=== PATIENT | female | born 1940 | race Caucasian/White ===

== ENCOUNTER → 2017-12-23 | Outpatient (CLI) | payer MEDICARE ==
--- NOTE | 2017-12-23 16:12 | BD ---
EXAMINATION TYPE: Axial Bone Density DATE OF EXAM: 12/23/2017 COMPARISON: NONE CLINICAL HISTORY: Osteoporosis screening Height: 5' Weight: 142 FRAX RISK QUESTIONS: History of Fracture in Adulthood: y Secondary Osteoporosis: 3. Menopause before 45: y RISK FACTORS HISTORY OF: Surgery to Spine: fusion When: 2002 Postmenopausal woman: MEDICATIONS: Thyroid Medications: Which medication: Synthroid How Lon years Additional Medications: depression, Additional History: cancer, skin EXAM MEASUREMENTS: Bone mineral densitometry was performed using the [employer] System. Bone mineral density about the R hip (g/cm2): 0.714 Bone mineral density about the L hip (g/cm2): 0.753 T Score values are as follows: -----R Neck: -2.3 -----L Neck: -2.0 -----R Total: -1.9 -----L Total: -1.9 Bone mineral density about the L Wrist (g/cm2): 0.524 T Score values are as follows: -----Dist. R+U: -2.6 -----Prox. R+U: -1.8 -----Radius total: -2.5 IMPRESSION: Osteoporosis (T Score less than -2.5). There is increased fracture risk and therapy is usually indicated based on age. Re-Screen 1-2 years. NOTE: T-SCORE=SD OF THE YOUNG ADULT MEAN.
== END | disposition home or self-care (01) ==
LOC: RADBDWWP 12:55
PROVIDERS: ATTEND Family Medicine
DX: M81.0 Age-related osteoporosis without current pathological fracture (principal)
CPT/HCPCS: 77080

== ENCOUNTER → 2018-12-21 | Outpatient (CLI) | payer MEDICARE ==
--- NOTE | 2018-12-21 15:57 | CT ---
EXAMINATION TYPE: CT abdomen pelvis w con DATE OF EXAM: 12/21/2018 COMPARISON: None INDICATION: Ulcerative colitis DLP: 668.4 mGycm, Automated exposure control for dose reduction was used. CONTRAST: 100 mL of Isovue 300. Study performed with Oral Contrast TECHNIQUE: Axial images were obtained from above the diaphragm to the pubic rami in the axial plane a t 5 mm thick sections. Reconstructed images are reviewed on the computer in the coronal plane. FINDINGS: Limited CT sections are obtained the lung bases. The lung bases are clear. CT ABDOMEN: Liver: Normal Spleen: Normal Pancreas: Normal Adrenal glands: The adrenal glands are normal. Gallbladder: Surgically absent Kidneys: No masses are evident. No hydronephrosis is present. Pole cortical renal cysts are present bilaterally. Delayed images were obtained through the kidneys, which remain unremarkable. Aorta: Vascular calcification is within the aorta. Inferior vena cava: Normal. CT PELVIS: Loops of bowel within the abdomen and pelvis are normal. There are loops of bowel which are incom pletely distended or lack oral contrast limiting their evaluation. Appendix: Not identified. No suspicious inflammatory changes are evident. Urinary bladder: Normal. Genitourinary structures: Vaginal cuff region appears normal. Uterus and ovaries are not identified. Osseous structures: No suspicious lytic or sclerotic lesions. Surgical changes are within the lumbar spine. IMPRESSIONS: 1. Cortical renal cysts present bilaterally. 2. Bowel loops as visualized on this examination appear within normal limits. No suspicious wall thic kening or inflammatory changes are evident.
== END | disposition home or self-care (01) ==
LOC: RADCTMAIN 12:40
PROVIDERS: ATTEND Family Medicine
DX: N28.1 Cyst of kidney, acquired (principal); Z87.19 Personal history of other diseases of the digestive system
CPT/HCPCS: 82565; 84520; 74177; 36415; Q9967 ×2

== ENCOUNTER → 2020-09-25 | Outpatient (CLI) | payer MEDICARE | END | disposition home or self-care (01) | LOC: LABWHC1 08:34 | PROVIDERS: ATTEND Family Medicine | DX: R06.02 Shortness of breath (principal) | CPT/HCPCS: 36415; 93005 ==

== ENCOUNTER 2020-09-27 20:29 | Observation (INO) | payer MEDICARE ==
[2020-09-27] MEDS ORDERED: ASPIRIN 81 MG PO STA (21:06)
--- NOTE | 2020-09-27 21:10 | ED ---
Chest Pain HPI - General Chief Complaint: Chest Pain Stated Complaint: Chest Pain,SOB Time Seen by Provider: 09/27/20 20:47 Source: patient, RN notes reviewed Mode of arrival: wheelchair Limitations: no limitations - History of Present Illness Initial Comments: 80-year-old female presents emergency Department chief complaint of chest discomfort. Patient's been having some on-and-off symptoms with the week. Patient saw PCP ordered EKG. Patient states that she was instructed to go to emergency from symptoms worsen. Patient states that seemed to worsen tonight. She has had some exertional symptoms. Patient denies any prior cardiac disease. No history of blood clots. Patient states she has pain left side and felt some back pain but states it felt different. Patient states the back pain has resolved. Patient did take a baby aspirin prior arrival. Denies any abdominal complaints including nausea vomiting diaphoresis. - Related Data Home Medications Medication Instructions Recorded Confirmed Baclofen 10 mg PO HS PRN 01/01/15 01/17/15 Fexofenadine HCl [Anais Allergy] 180 mg PO HS 01/01/15 01/17/15 Levothyroxine Sodium [Synthroid] 50 mcg PO QAM 01/01/15 01/17/15 Mometasone Furoate [Nasonex] 2 spray INHALATION DAILY 01/01/15 01/17/15 Temazepam [Restoril] 15 mg PO HS PRN 01/01/15 01/17/15 sulfaSALAzine [Sulfasalazine] 500 mg PO DAILY PRN 01/01/15 01/17/15 Acetaminophen Tab [Tylenol Tab] 500 mg PO Q6H PRN 01/17/15 01/17/15 Allergies Allergy/AdvReac Type Severity Reaction Status Date / Time morphine Allergy HYPOTENSION Verified 01/17/15 08:31 Penicillins Allergy Dyspnea Verified 01/17/15 08:31 antibactrial cream Allergy Rash/Hives Uncoded 09/27/20 20:36 Review of Systems ROS Statement: Those systems with pertinent positive or pertinent negative responses have been documented in the HPI. ROS Other: All systems not noted in ROS Statement are negative. EKG Findings - EKG Comments: EKG Findings:: EKG performed at 20:48 sinus rhythm PVCs noted rate of 66 WA 166 QRS 82 QT/QTC 452/475 there is a noted prolonged QT. - EKG Results: EKG: interpreted by ERMD Past Medical History Past Medical History: Cancer, Thyroid Disorder Additional Past Medical History / Comment(s): COLITIS. BASAL CELL. CHRONIC BACK PAIN. History of Any Multi-Drug Resistant Organisms: None Reported Past Surgical History: Adenoidectomy, Back Surgery, Cholecystectomy, Hyster ectomy, Tonsillectomy Additional Past Surgical History / Comment(s): DISCECTOMY/FUSION: L4-5 & L5-S1. REMOVAL OF SCALP LESION. BILATERAL CATARACTS/LENS IMPLANTS. Past Anesthesia/Blood Transfusion Reactions: No Reported Reaction Past Psychological History: No Psychological Hx Reported Smoking Status: Former smoker Past Alcohol Use History: Occasional Past Drug Use History: None Reported - Past Family History Mother Family Medical History: CVA/TIA General Exam Limitations: no limitations General appearance: alert, in no apparent distress Head exam: Present: atraumatic, normocephalic, normal inspection Eye exam: Present: normal appearance, PERRL, EOMI. Absent: scleral icterus, conjunctival injection, periorbital swelling ENT exam: Present: normal exam, normal oropharynx, mucous membranes moist Neck exam: Present: normal inspection, full ROM. Absent: tenderness, meningismus, lymphadenopathy Respiratory exam: Present: normal lung sounds bilaterally. Absent: respiratory distress, wheezes, rales, rhonchi, stridor Cardiovascular Exam: Present: regular rate, normal rhythm, normal heart sounds. Absent: systolic murmur, diastolic murmur, rubs, gallop, clicks GI/Abdominal exam: Present: soft, tenderness (Mild epigastric), normal bowel sounds. Absent: distended, guarding, rebound, rigid Back exam: Absent: CVA tenderness (R), CVA tenderness (L) Neurological exam: Present: alert, oriented X3 Skin exam: Present: warm, dry, intact, normal color. Absent: rash Course Vital Signs 09/27/20 20:33 Temperature 97.3 F L Pulse Rate 69 Respiratory 20 Rate Blood Pressure 165/80 O2 Sat by Pulse 99 Oximetry Chest Pain MDM - MDM 80-year-old presented for chest pain. Patient's been having on and off symptoms worsening initial workup is negative this time including troponin. Patient will be kept for repeat cardiac enzymes, cardiology evaluation and echocardiogram. Disposition Clinical Impression: Chest pain Disposition: ADMITTED IP TO THIS HOSP Condition: Fair Referrals: Raisa uRvalcaba MD [Primary Care Provider] - 1-2 days
--- NOTE | 2020-09-27 21:38 | XR ---
EXAMINATION TYPE: XR chest 2V DATE OF EXAM: 09/27/2020 COMPARISON: NONE HISTORY: Chest pain TECHNIQUE: 2 views FINDINGS: There is no heart failure nor confluent pneumonic infiltrate. There are chest leads. Thorac ic aorta is atheromatous. IMPRESSION: No active cardiopulmonary disease. Normal heart.
[2020-09-27 21:42] LABS: Basophils # (A) 0.1 k/uL (0-0.2); Basophils % (A) 1 %; Eosinophils # (A) 0.3 k/uL (0-0.7); Eosinophils % (A) 4 %; HCT 39.2 % (34.0-46.0); HGB 13.2 gm/dL (11.4-16.0); Lymphocytes # (A) 2.5 k/uL (1.0-4.8); Lymphocytes % (A) 35 %; MCH 31.6 pg (25.0-35.0); MCHC 33.6 g/dL (31.0-37.0); MCV 93.9 fL (80.0-100.0); Mean Platelet Volume 8.7; Monocytes # (A) 0.5 k/uL (0-1.0); Monocytes % (A) 7 %; Neutrophils # (A) 3.6 k/uL (1.3-7.7); Neutrophils % (A) 51 %; Platelet Count 223 k/uL (150-450); RBC 4.18 m/uL (3.80-5.40); RDW 13.6 % (11.5-15.5); WBC 7.1 k/uL (3.8-10.6)
[2020-09-27 21:56] LABS: Albumin 3.9 g/dL (3.5-5.0); Calcium 9.4 mg/dL (8.4-10.2); Magnesium 2.1 mg/dL (1.6-2.3); Potassium 4.1 mmol/L (3.5-5.1); Total Bilirubin 0.4 mg/dL (0.2-1.3); Total Protein 6.5 g/dL (6.3-8.2)
[2020-09-27 22:03] LABS: D-Dimer 0.21 mg/L FEU (<0.60); INR 0.9 (<1.2); Partial Thromboplastin Time 24.4 sec (22.0-30.0); Prothrombin Time 10.1 sec (9.0-12.0)
[2020-09-27] MEDS ORDERED: NITROGLYCERIN SL TABS 0.4 MG TAB SUBLINGUAL PRN (22:45)
[2020-09-27] MEDS ORDERED: HEPARIN SODIUM,PORCINE 5,000 UNIT/ML 1 ML VIAL IV PRN (22:45)
[2020-09-27] MEDS ORDERED: HEPARIN SODIUM,PORCINE 5,000 UNIT/ML 1 ML VIAL IV ONE (22:45)
[2020-09-27] MEDS ORDERED: HEPARIN SOD,PORK IN 0.45% NACL 25,000 UNIT in 0.45% NACL 1 250ML.BAG IV SCH (22:45)
[2020-09-28 04:18] LABS: Mean Platelet Volume 8.7; Platelet Count 195 k/uL (150-450)
[2020-09-28 05:46] LABS: Cholesterol 195 mg/dL (<200); HDL Cholesterol 81 mg/dL (40-60); LDL Cholesterol,Calculated 104 mg/dL (0-99); Triglycerides 52 mg/dL (<150)
[2020-09-28] MEDS ORDERED: ASPIRIN 325 MG TAB PO SCH (09:00)
[2020-09-28] MEDS ORDERED: CLOTRIMAZOLE 1% CREAM 30 GM TUBE TOPICAL PRN (12:32)
[2020-09-28] MEDS ORDERED: HYDROCORTISONE 1% CREAM 30 GM TUBE TOPICAL PRN (12:32)
--- NOTE | 2020-09-28 13:04 | P.HPIM ---
History of Present Illness H&P Date: 09/28/20 Chief Complaint: Chest pain Erica Zuniga, he is a 80-year-old female patient of Dr. Ruvalcaba, who presented to [facility] emergency room with a chief complaint of chest pain patient describes a pressure sensation in the middle of her chest radiating to the back and the it instructor 8 with shortness of breath there is no nausea or vomiting no diaphoresis and no radiation of the pain to the jaw or to the arms. Patient had a first episode of chest pain on Wednesday 5 days ago she saw her primary care physician Dr. Ruvalcaba, she had an EKG that was described as abn ormal, an outpatient appointment was made for patient to see cardiology, and she was told to come to emergency room if she had a second episode of chest pain. Patient had chest pain again on Wednesday night and she came to emergency room. Patient was evaluated in the emergency room her vital examination on presentation reveals a temperature of 97.3 pulse 69 respiration 20 blood pressure 165/80 pulse ox 99% on room air her white blood count was 7.1 hemoglobin 13.2 platelet count 223 d-dimer 0.21 sodium 135 potassium 4.1 chloride 102 BUN 22 creatinine 0.85 troponin level less than 0.012 lipase 251 Forrest virus PCR was negative. EKG in the emergency room revealed normal sinus rhythm with nonspecific ST and T-wave abnormalities and prolonged QT. Chest x- ray on presentation revealed no active cardiopulmonary disease. Patient was admitted to observation unit she was started on IV heparin cardiology consultation was requested. Past medical history is significant for history of hypertension, history of hypothyroidism, history of osteoarthritis, and history of carotid stenosis. Patient stated that she used to smoke she quit 30 years, she denies any previous history of chest pain and angina myocardial infarction or congestive heart failure, she denies ever being diagnosed with asthma or emphysema. Past Medical History Past Medical History: Cancer, Thyroid Disorder Additional Past Medical History / Comment(s): COLITIS. BASAL CELL. CHRONIC BACK PAIN. History of Any Multi-Drug Resistant Organisms: None Reported Past Surgical History: Adenoidectomy, Back Surgery, Cholecystectomy, Hysterectomy, Tonsillectomy Additional Past Surgical History / Comment(s): DISCECTOMY/FUSION: L4-5 & L5-S1. REMOVAL OF SCALP LESION. BILATERAL CATARACTS/LENS IMPLANTS. Past Anesthesia/Blood Transfusion Reactions: No Reported Reaction Past Psychological History: No Psychological Hx Reported Smoking Status: Former smoker Past Alcohol Use History: Occasional Past Drug Use History: None Reported - Past Family History Mother Family Medical History: CVA/TIA Medications and Allergies Home Medications Medication Instructions Recorded Confirmed Type Fexofenadine HCl [Anais Allergy] 180 mg PO HS 01/01/15 09/27/20 History Levothyroxine Sodium [Synthroid] 50 mcg PO DAILY 01/01/15 09/27/20 History Mometasone Furoate [Nasonex] 1 spray EA NOSTRIL HS 01/01/15 09/27/20 History Alendronate Sodium [Fosamax] 70 mg PO MO 09/27/20 09/27/20 History Ascorbic Acid [Vitamin C] 1,000 mg PO DAILY 09/27/20 09/27/20 History Biotin 5,000 mcg PO DAILY 09/27/20 09/27/20 History Calcium/Magnesium/Zinc 1 tab PO DAILY 09/27/20 09/27/20 History [Dfzguvn-Gudyojgbn-Xzmg Tablet] Cholecalciferol [Vitamin D3 (25 50 mcg PO DAILY 09/27/20 09/27/20 History Mcg = 1000 Iu)] Citrucel Caps 3 cap PO HS 09/27/20 09/27/20 History Dorzolamide HCl/Pf [Dorzolamide 2% 1 drop RIGHT EYE BID 09/27/20 09/27/20 History Eye Drop] Glucosam/Dm-Msm1/C/Tamir/Bosw 1 tab PO DAILY 09/27/20 09/27/20 History [Glucosamine-Chondroitin Tablet] Hydrocortisone Cream 1 applic TOPICAL BID PRN 09/27/20 09/27/20 History [Hydrocortisone 2.5% Cream] Isosorbide Mononitrate ER [Imdur] 30 mg PO DAILY 09/27/20 09/27/20 History Ketoconazole [Ketoconazole 2%] 1 applic TOPICAL BID PRN 09/27/20 09/27/20 History Timolol 0.5% Ophth Soln [Timoptic 1 drop BOTH EYES BID 09/27/20 09/27/20 History 0.5% Ophth Soln] Turmeric Curcumin 1500mg 1,500 mg PO DAILY 09/27/20 09/27/20 History Vits A,C,E/Lutein/Minerals [Vision 1 tab PO DAILY 09/27/20 09/27/20 History Formula with Lutein Tab] Allergies Allergy/AdvReac Type Severity Reaction Status Date / Time morphine Allergy HYPOTENSION Verified 09/27/20 22:55 Penicillins Allergy Dyspnea Verified 09/27/20 22:55 antibactrial cream Allergy Rash/Hives Uncoded 09/27/20 20:36 Physical Exam Vitals: Vital Signs Temp Pulse Resp BP Pulse Ox 09/28/20 05:16 98.6 F 60 18 198/89 99 09/27/20 23:15 97.7 F 58 L 16 162/74 95 09/27/20 21:00 61 16 95 09/27/20 20:33 97.3 F L 69 20 165/80 99 Intake and Output 09/27/20 09/27/20 09/28/20 14:59 22:59 06:59 Intake Total 43.319 Balance 43.319 Intake: Intake, IV Titration 43.319 Amount Heparin Sod,Pork in 0.45% 43.319 NaCl 25,000 unit In 0.45 % NaCl 1 250ml.bag @ 12 UNITS/KG/HR 7.512 mls/hr IV .Q24H [facility] Rx#: [id number] Other: Weight 62.596 kg In general patient is alert and oriented in no apparent distress HEENT head normocephalic and atraumatic Neck is supple no JVD no goiter no lymphadenopathy Chest exam reveals a few scattered rhonchi no wheezing Cardiac exam reveals regular heart sounds S1 and S2 no gallops no murmurs Abdomen is soft nontender no organomegaly with normal bowel sounds Extremity exam reveals no edema no cyanosis or clubbing Neurological examination reveals no gross focal deficit Results CBC & Chem 7: 09/28/20 03:24 09/27/20 21:13 Labs: Abnormal Lab Results - Last 24 Hours (Table) 09/27/20 09/28/20 09/28/20 Range/Units 21:13 03:23 03:24 APTT 110.9 H* (22.0-30.0) sec Sodium 135 L (137-145) mmol/L BUN 22 H (7-17) mg/dL LDL Cholesterol, Calc 104 H (0-99) mg/dL HDL Cholesterol 81 H (40-60) mg/dL Assessment and Plan Plan: 1. Chest pain, serial EKG and cardiac enzymes ordered patient is maintained on IV heparin cardiology consultation requested 2. Underlying history of hypertension home medications reviewed and review there 3. Underlying history of hypothyroidism maintained on Synthroid was continued 4. Underlying history of osteoarthritis At this time patient is stable no new episodes of chest pain since admission Continue IV heparin awaiting further troponin levels Awaiting cardiology input will follow closely
[2020-09-28] MEDS: LEVOTHYROXINE 50 MCG TAB PO SCH (13:34)
[2020-09-28] MEDS: ISOSORBIDE MONONITRATE ER 30 MG TAB.ER.24H PO SCH (13:34)
[2020-09-28] MEDS: NON FORMULARY DRUG (Calcium/Magnesium/Zinc [Calcium-Magnesium-Zinc Tablet] 1 EACH Tablet) PO SCH (13:36)
[2020-09-28] MEDS: ASCORBIC ACID 500 MG TAB PO SCH (13:45)
[2020-09-28] MEDS: CHOLECALCIFEROL 25 MCG (1000 IU) TABLET PO SCH (13:45)
[2020-09-28] MEDS: VIT A,C & E-LUTEIN-MINERALS 1 EACH TAB PO SCH (13:46)
[2020-09-28] MEDS ORDERED: ALPRAZolam 0.25 MG TAB PO PRN (15:42)
[2020-09-28] MEDS ORDERED: NITROGLYCERIN SL TABS 0.4 MG TAB SUBLINGUAL PRN (15:42)
[2020-09-28] MEDS ORDERED: ALPRAZolam 0.5 MG TAB PO PRN (15:42)
--- NOTE | 2020-09-28 15:42 | P.CRDCN ---
<Nicci Wang - Last Filed: 09/28/20 15:41> History of Present Illness Consult date: 09/28/20 History of present illness: CHIEF COMPLAINT: Chest pain HISTORY OF PRESENT ILLNESS: This is a 80-year-old female with a past medical history significant for hypothyroidism and former nicotine dependence. Patient does not follow with a engine research engineer. We have been asked to see the patient in consultation for chest pain. Patient examined this morning at the bedside. Patient states that she saw her primary care physician last week after expressing episode of chest pain. She reports that an EKG was completed in the office and she was told it was abnormal and was referred to see a engine research engineer. Patient states that she had an appointment scheduled to see Dr. Rodriguez outpatient this coming week. However she reports having another episode of chest pain so she came to the hospital for further evaluation. The patient states her chest pain began as she was walking to her car from a store. She reports the pain was in the middle of her chest and radiated into her back. She denied any dizziness or lightheadedness. She reports associated shortness of breath. She denied any nausea or vomiting. At the time of examination this morning, the patient denies any chest pain or pressure. DIAGNOSTICS: EKG reveals sinus mechanism with PVCs with no evidence of acute ischemia. Prolonged QT. Chest xray no active cardiopulmonary disease. Laboratory data: WBC 7.1. Hemoglobin 13.2. Platelet count 223. D-dimer 0.21. Sodium 135. Potassium 4.1. BUN 22. Creatinine 0.85. Magnesium 2.1. Troponin negative 3. Current home cardiac medications include Imdur 30 mg daily REVIEW OF SYSTEMS: At the time of my exam: CONSTITUTIONAL: Denies fever or chills. HEENT: Denies blurred vision, vision changes, or eye pain. Denies hemoptysis CARDIOVASCULAR: Denies chest pain, orthopnea, PND or palpitations RESPIRATORY: No shortness of breath. GASTROINTESTINAL: Denies abdominal pain. Denies nausea or vomiting. HEMATOLOGIC: Denies bleeding disorders. GENITOURINARY: Denies any blood in urine. SKIN: Denies pruitis. Denies rash. PHYSICAL EXAM: VITAL SIGNS: Reviewed. GENERAL: Well-developed in no acute distress. HEENT: Head is normocephalic. Pupils are equal, round. Sclerae anicteric. Mucous membranes of the mouth are moist. Neck supple. No JVD or thyromegaly LUNGS: Respirations even and unlabored. Lungs essentially clear to auscultation bilaterally. HEART: Regular rate and rhythm. S1 and S2 heard. ABDOMEN: Soft. Nondistended. Nontender. EXTREMITIES: Normal range of motion. No clubbing or cyanosis. Peripheral pulses intact. No lower extremity edema NEUROLOGIC: Awake and alert. Oriented x 3. ASSESSMENT: Chest pain, troponins negative 3 Hypertension Hypothyroidism Former nicotine dependence PLAN: An acute coronary event has been ruled out Discontinue IV heparin Obtain 2-D echo to assess cardiac structure and function Monitor blood pressure Begin lisinopril 10 mg daily for optimal blood pressure control Patient to undergo cardiac catheterization with Dr. Rodriguez on Wednesday Nurse practitioner note has been reviewed by physician. Signing provider agrees with the documented findings, assessment, and plan of care. Past Medical History Past Medical History: Cancer, Thyroid Disorder Additional Past Medical History / Comment(s): COLITIS. BASAL CELL. CHRONIC BACK PAIN. History of Any Multi-Drug Resistant Organisms: None Reported Past Surgical History: Adenoidectomy, Back Surgery, Cholecystectomy, Hysterectomy, Tonsillectomy Additional Past Surgical History / Comment(s): DISCECTOMY/FUSION: L4-5 & L5-S1. REMOVAL OF SCALP LESION. BILATERAL CATARACTS/LENS IMPLANTS. Past Anesthesia/Blood Transfusion Reactions: No Reported Reaction Past Psychological History: No Psychological Hx Reported Smoking Status: Former smoker Past Alcohol Use History: Occasional Past Drug Use History: None Reported - Past Family History Mother Family Medical History: CVA/TIA Medications and Allergies Home Medications Medication Instructions Recorded Confirmed Type Fexofenadine HCl [Anais Allergy] 180 mg PO HS 01/01/15 09/27/20 History Levothyroxine Sodium [Synthroid] 50 mcg PO DAILY 01/01/15 09/27/20 History Mometasone Furoate [Nasonex] 1 spray EA NOSTRIL HS 01/01/15 09/27/20 History Alendronate Sodium [Fosamax] 70 mg PO MO 09/27/20 09/27/20 History Ascorbic Acid [Vitamin C] 1,000 mg PO DAILY 09/27/20 09/27/20 History Biotin 5,000 mcg PO DAILY 09/27/20 09/27/20 History Calcium/Magnesium/Zinc 1 tab PO DAILY 09/27/20 09/27/20 History [[place]-Aejdykuxi-Mdth Tablet] Cholecalciferol [Vitamin D3 (25 50 mcg PO DAILY 09/27/20 09/27/20 History Mcg = 1000 Iu)] Citrucel Caps 3 cap PO HS 09/27/20 09/27/20 History Dorzolamide HCl/Pf [Dorzolamide 2% 1 drop RIGHT EYE BID 09/27/20 09/27/20 History Eye Drop] Glucosam/Dm-Msm1/C/Tamir/Bosw 1 tab PO DAILY 09/27/20 09/27/20 History [Glucosamine-Chondroitin Tablet] Hydrocortisone Cream 1 applic TOPICAL BID PRN 09/27/20 09/27/20 History [Hydrocortisone 2.5% Cream] Isosorbide Mononitrate ER [Imdur] 30 mg PO DAILY 09/27/20 09/27/20 History Ketoconazole [Ketoconazole 2%] 1 applic TOPICAL BID PRN 09/27/20 09/27/20 History Timolol 0.5% Ophth Soln [Timoptic 1 drop BOTH EYES BID 09/27/20 09/27/20 History 0.5% Ophth Soln] Turmeric Curcumin 1500mg 1,500 mg PO DAILY 09/27/20 09/27/20 History Vits A,C,E/Lutein/Minerals [Vision 1 tab PO DAILY 09/27/20 09/27/20 History Formula with Lutein Tab] Allergies Allergy/AdvReac Type Severity Reaction Status Date / Time morphine Allergy HYPOTENSION Verified 09/27/20 22:55 Penicillins Allergy Dyspnea Verified 09/27/20 22:55 antibactrial cream Allergy Rash/Hives Uncoded 09/27/20 20:36 Physical Exam Vitals: Vital Signs Temp Pulse Pulse Resp BP BP Pulse Ox 09/28/20 07:49 97.8 F 61 16 170/69 98 09/28/20 05:16 98.6 F 60 18 198/89 99 09/27/20 23:15 97.7 F 58 L 16 162/74 95 09/27/20 21:00 61 16 95 09/27/20 20:33 97.3 F L 69 20 165/80 99 Intake and Output 09/27/20 09/28/20 09/28/20 22:59 06:59 14:59 Intake Total 43.319 Balance 43.319 Intake: Intake, IV Titration 43.319 Amount Heparin Sod,Pork in 0.45% 43.319 NaCl 25,000 unit In 0.45 % NaCl 1 250ml.bag @ 12 UNITS/KG/HR 7.512 mls/hr IV .Q24H [facility] Rx#: [id number] Other: Weight 62.596 kg Results 09/28/20 03:24 09/27/20 21:13 Cardiac Enzymes 09/27/20 09/27/20 09/28/20 Range/Units 21:13 21:13 00:30 AST 23 (14-36) U/L Troponin I <0.012 <0.012 (0.000-0.034) ng/mL 09/28/20 Range/Units 03:23 AST (14-36) U/L Troponin I <0.012 (0.000-0.034) ng/mL Coagulation 09/27/20 09/28/20 09/28/20 Range/Units 21:13 03:24 10:30 PT 10.1 (9.0-12.0) sec APTT 24.4 110.9 H* 43.9 H (22.0-30.0) sec Lipids 09/28/20 Range/Units 03:23 Triglycerides 52 (<150) mg/dL Cholesterol 195 (<200) mg/dL HDL Cholesterol 81 H (40-60) mg/dL CBC 09/27/20 09/28/20 Range/Units 21:13 03:24 WBC 7.1 (3.8-10.6) k/uL RBC 4.18 (3.80-5.40) m/uL Hgb 13.2 (11.4-16.0) gm/dL Hct 39.2 (34.0-46.0) % Plt Count 223 195 (150-450) k/uL Comprehensive Metabolic Panel 09/27/20 Range/Units 21:13 Sodium 135 L (137-145) mmol/L Potassium 4.1 (3.5-5.1) mmol/L Chloride 102 (98-107) mmol/L Carbon Dioxide 25 (22-30) mmol/L BUN 22 H (7-17) mg/dL Creatinine 0.85 (0.52-1.04) mg/dL Glucose 88 (74-99) mg/dL Calcium 9.4 (8.4-10.2) mg/dL AST 23 (14-36) U/L ALT 13 (4-34) U/L Alkaline Phosphatase 47 (38-126) U/L Total Protein 6.5 (6.3-8.2) g/dL Albumin 3.9 (3.5-5.0) g/dL Current Medications Generic Name Dose Route Start Last Admin Trade Name Freq PRN Reason Stop Dose Admin Ascorbic Acid 1,000 mg 09/28/20 14:00 09/28/20 13:45 Ascorbic Acid 500 Mg Tab PO 1,000 mg DAILY JAKE Administration Aspirin 325 mg 09/28/20 09:00 09/28/20 10:07 Aspirin 325 Mg Tab PO 325 mg DAILY JAKE Administration Cholecalciferol 50 mcg 09/28/20 14:00 09/28/20 13:45 Cholecalciferol 25 Mcg (1000 Iu) Tablet PO 50 mcg DAILY JAKE Administration Clotrimazole 1 applic 09/28/20 12:32 Clotrimazole 1% Cream 15 Gm Tube TOPICAL BID PRN Rash Dorzolamide HCl 1 drops 09/28/20 21:00 Dorzolamide Hcl 2% Drops 10 Ml Btl RIGHT EYE BID JAKE Fluticasone Propionate 1 spray 09/28/20 21:00 Fluticasone 50mcg/[place] Nasal 16gm EA NOSTRIL HS JAKE Heparin Sodium (Porcine) 0 unit 09/27/20 22:45 Heparin Sodium,Porcine 5,000 Unit/Ml 1 Ml Vial IV Q6HR PRN Low PTT Protocol Hydrocortisone 1 applic 09/28/20 12:32 Hydrocortisone 1% Cream 30 Gm Tube TOPICAL BID PRN Rash Isosorbide Mononitrate 30 mg 09/28/20 14:00 09/28/20 13:34 Isosorbide Mononitrate Er 30 Mg Tab.Er.24h PO 30 mg DAILY JAKE Administration Levothyroxine Sodium 50 mcg 09/28/20 14:00 09/28/20 13:34 Levothyroxine 50 Mcg Tab PO 50 mcg 0630 JAKE Administration Loratadine 10 mg 09/28/20 21:00 Loratadine 10 Mg Tab PO HS JAKE Multivitamins/Minerals 1 each 09/28/20 14:00 09/28/20 13:46 Vit A,C & A-Xfzrvr-Osavqlee 1 Each Tab PO 1 each DAILY JAKE Administration Nitroglycerin 0.4 mg 09/27/20 22:45 Nitroglycerin Sl Tabs 0.4 Mg Tab SUBLINGUAL Q5M PRN Chest Pain Non-Formulary Medication 70 mg 09/30/20 09:00 Alendronate Sodium [Fosamax] PO MO JAKE Non-Formulary Medication 5,000 mcg 09/29/20 09:00 Biotin [Biotin] PO DAILY JAKE Non-Formulary Medication 1 tab 09/28/20 12:45 09/28/20 13:36 Calcium/Magnesium/Zinc [Unfuwvy-Nsleggebh-Degl Tablet] PO Not Given DAILY JAKE Non-Formulary Medication 1 tab 09/29/20 09:00 Glucosam/Dm-Msm1/C/Tamir/Bosw [Glucosamine-Chondroitin Tablet] PO DAILY JAKE Non-Formulary Medication 1,500 mg 09/29/20 09:00 Turmeric Curcumin 1500mg PO DAILY JAKE Timolol Maleate 1 drops 09/28/20 21:00 Timolol 0.5% Ophth Drops 5 Ml Btl BOTH EYES BID JAKE Intake and Output 09/27/20 09/28/20 09/28/20 22:59 06:59 14:59 Intake Total 43.319 Balance 43.319 Intake: Intake, IV Titration 43.319 Amount Heparin Sod,Pork in 0.45% 43.319 NaCl 25,000 unit In 0.45 % NaCl 1 250ml.bag @ 12 UNITS/KG/HR 7.512 mls/hr IV .Q24H [facility] Rx#: [id number] Other: Weight 62.596 kg 09/28/20 03:24 09/27/20 21:13 <Mickey Rodriguez - Last Filed: 09/28/20 20:46> Physical Exam Vitals: Vital Signs Temp Pulse Pulse Resp BP BP Pulse Ox 09/28/20 15:00 97.5 F L 61 19 107/65 96 09/28/20 07:49 97.8 F 61 16 170/69 98 09/28/20 05:16 98.6 F 60 18 198/89 99 09/27/20 23:15 97.7 F 58 L 16 162/74 95 09/27/20 21:00 61 16 95 Intake and Output 09/28/20 09/28/20 09/28/20 06:59 14:59 22:59 Intake Total 43.319 240 Balance 43.319 240 Intake: Intake, IV Titration 43.319 Amount Heparin Sod,Pork in 0.45% 43.319 NaCl 25,000 unit In 0.45 % NaCl 1 250ml.bag @ 12 UNITS/KG/HR 7.512 mls/hr IV .Q24H [facility] Rx#: [id number] Oral 240 Other: # Voids 3 Weight 62.596 kg Results 09/28/20 03:24 09/27/20 21:13 Cardiac Enzymes 09/27/20 09/27/20 09/28/20 Range/Units 21: 21: 00:30 AST 23 (14-36) U/L Troponin I <0.012 <0.012 (0.000-0.034) ng/mL 09/28/20 Range/Units 03:23 AST (14-36) U/L Troponin I <0.012 (0.000-0.034) ng/mL Coagulation 09/27/20 09/28/20 09/28/20 Range/Units 21: 03:24 10:30 PT 10.1 (9.0-12.0) sec APTT 24.4 110.9 H* 43.9 H (22.0-30.0) sec Lipids 09/28/20 Range/Units 03:23 Triglycerides 52 (<150) mg/dL Cholesterol 195 (<200) mg/dL HDL Cholesterol 81 H (40-60) mg/dL CBC 09/27/20 09/28/20 Range/Units 21:13 03:24 WBC 7.1 (3.8-10.6) k/uL RBC 4.18 (3.80-5.40) m/uL Hgb 13.2 (11.4-16.0) gm/dL Hct 39.2 (34.0-46.0) % Plt Count 223 195 (150-450) k/uL Comprehensive Metabolic Panel 09/27/20 Range/Units 21:13 Sodium 135 L (137-145) mmol/L Potassium 4.1 (3.5-5.1) mmol/L Chloride 102 (98-107) mmol/L Carbon Dioxide 25 (22-30) mmol/L BUN 22 H (7-17) mg/dL Creatinine 0.85 (0.52-1.04) mg/dL Glucose 88 (74-99) mg/dL Calcium 9.4 (8.4-10.2) mg/dL AST 23 (14-36) U/L ALT 13 (4-34) U/L Alkaline Phosphatase 47 (38-126) U/L Total Protein 6.5 (6.3-8.2) g/dL Albumin 3.9 (3.5-5.0) g/dL Current Medications Generic Name Dose Route Start Last Admin Trade Name Freq PRN Reason Stop Dose Admin Alprazolam 0.25 mg 09/28/20 15:42 Alprazolam 0.25 Mg Tab PO Q6HR PRN Mild Anxiety Alprazolam 0.5 mg 09/28/20 15:42 Alprazolam 0.5 Mg Tab PO Q6HR PRN Moderate Anxiety Ascorbic Acid 1,000 mg 09/28/20 14:00 09/28/20 13:45 Ascorbic Acid 500 Mg Tab PO 1,000 mg DAILY JAKE Administration Aspirin 325 mg 09/30/20 06:00 Aspirin 325 Mg Tab PO 09/30/20 06:01 ONCE ONE Atorvastatin Calcium 80 mg 09/30/20 06:00 Atorvastatin 80 Mg Tab PO 09/30/20 06:01 ONCE ONE Cholecalciferol 50 mcg 09/28/20 14:00 09/28/20 13:45 Cholecalciferol 25 Mcg (1000 Iu) Tablet PO 50 mcg DAILY JAKE Administration Clotrimazole 1 applic 09/28/20 12:32 Clotrimazole 1% Cream 15 Gm Tube TOPICAL BID PRN Rash Dorzolamide HCl 1 drops 09/28/20 21:00 Dorzolamide Hcl 2% Drops 10 Ml Btl RIGHT EYE BID JAKE Fluticasone Propionate 1 spray 09/28/20 21:00 Fluticasone 50mcg/[place] Nasal 16gm EA NOSTRIL HS JAKE Heparin Sodium (Porcine) 0 unit 09/27/20 22:45 Heparin Sodium,Porcine 5,000 Unit/Ml 1 Ml Vial IV Q6HR PRN Low PTT Protocol Hydrocortisone 1 applic 09/28/20 12:32 Hydrocortisone 1% Cream 30 Gm Tube TOPICAL BID PRN Rash Sodium Chloride 1,000 ml/ IV 1,000 mls @ 62.596 mls/hr 09/29/20 23:00 Solution IV 09/30/20 14:58 .[id number] ONE 1 ML/KG/HR Heparin Sodium (Porcine) 10, 1,001 mls @ 999 mls/hr 09/30/20 07:00 000 unit/ Sodium Chloride IRRIGATION 09/30/20 20:00 ONCE PRN INTRA-OP Heparin Sodium (Porcine) 2,500 250.5 mls @ 250 mls/hr 09/30/20 07:00 unit/ Sodium Chloride IRRIGATION 09/30/20 20:00 ONCE PRN INTRA-OP Isosorbide Mononitrate 30 mg 09/28/20 14:00 09/28/20 13:34 Isosorbide Mononitrate Er 30 Mg Tab.Er.24h PO 30 mg DAILY JAKE Administration Levothyroxine Sodium 50 mcg 09/28/20 14:00 09/28/20 13:34 Levothyroxine 50 Mcg Tab PO 50 mcg 0630 JAKE Administration Lisinopril 10 mg 09/28/20 14:45 09/28/20 16:28 Lisinopril 10 Mg Tab PO 10 mg DAILY JAKE Administration Loratadine 10 mg 09/28/20 21:00 Loratadine 10 Mg Tab PO HS JAKE Multivitamins/Minerals 1 each 09/28/20 14:00 09/28/20 13:46 Vit A,C & O-Gsfuhh-Tyuhlkrg 1 Each Tab PO 1 each DAILY JAKE Administration Nitroglycerin 0.4 mg 09/27/20 22:45 Nitroglycerin Sl Tabs 0.4 Mg Tab SUBLINGUAL Q5M PRN Chest Pain Nitroglycerin 0.4 mg 09/28/20 15:42 Nitroglycerin Sl Tabs 0.4 Mg Tab SUBLINGUAL Q5M PRN Chest Pain Non-Formulary Medication 70 mg 09/30/20 09:00 Alendronate Sodium [Fosamax] PO MO [facility] Non-Formulary Medication 5,000 mcg 09/29/20 09:00 Biotin [Biotin] PO DAILY [facility] Non-Formulary Medication 1 tab 09/28/20 12:45 09/28/20 13:36 Calcium/Magnesium/Zinc [Dsywcrc-Djmrgxdvv-Vacj Tablet] PO Not Given DAILY JAKE Non-Formulary Medication 1 tab 09/29/20 09:00 Glucosam/Dm-Msm1/C/Tamir/Bosw [Glucosamine-Chondroitin Tablet] PO DAILY [facility] Non-Formulary Medication 1,500 mg 09/29/20 09:00 Turmeric Curcumin 1500mg PO DAILY JAKE Timolol Maleate 1 drops 09/28/20 21:00 Timolol 0.5% Ophth Drops 5 Ml Btl BOTH EYES BID JAKE Intake and Output 09/28/20 09/28/20 09/28/20 06:59 14:59 22:59 Intake Total 43.319 240 Balance 43.319 240 Intake: Intake, IV Titration 43.319 Amount Heparin Sod,Pork in 0.45% 43.319 NaCl 25,000 unit In 0.45 % NaCl 1 250ml.bag @ 12 UNITS/KG/HR 7.512 mls/hr IV .Q24H JAKE Rx#: [id number] Oral 240 Other: # Voids 3 Weight 62.596 kg Patient Weight 09/29/20 06:59 Weight 62.596 kg 09/28/20 03:24 09/27/20 21:13
[2020-09-28] MEDS: lisinopriL 10 MG TAB PO SCH (16:28)
--- NOTE | 2020-09-28 17:37 | ECHOF ---
Referral Reason:chest pain MEASUREMENTS -------- HEIGHT: 180.3 cm WEIGHT: 62.6 kg BP: RVIDd: 2.1 cm (< 3.3) IVSd: 0.9 cm (0.6 - 1.1) LVIDd: 4.1 cm (3.9 - 5.3) LVPWd: 0.9 cm (0.6 - 1.1) IVSs: 1.7 cm LVIDs: 2.7 cm LVPWs: 1.5 cm LAESV Index (A-L): 26.71 ml/m Ao Diam: 2.6 cm (2.0 - 3.7) AV Cusp: 1.5 cm (1.5 - 2.6) LA Diam: 2.8 cm (2.7 - 3.8) MV EXCURSION: 12.755 mm (> 18.000) MV EF SLOPE: 48 mm/s (70 - 150) EPSS: 0.5 cm MV E Carlos: 1.16 m/s MV DecT: 273 ms MV A Carlos: 1.08 m/s MV E/A Ratio: 1.08 RAP: 5.00 mmHg RVSP: 37.16 mmHg FINDINGS -------- This was a technically good study. The left ventricular size is normal. Left ventricular wall thickness is normal. Overall left vent ricular systolic function is normal with, an EF between 55 - 60 %. The LV end diastolic pressure is elevated 18.62. The right ventricle is normal in size. The left atrial size is normal. Normal LA size by volume 22+/-6 ml/m2. The right atrial size is normal. Aortic valve is trileaflet and is mildly thickened. The mitral valve is normal. Mild mitral regurgitation is present. The tricuspid valve appears structurally normal. Mild tricuspid regurgitation present. There is m ild pulmonary hypertension. The right ventricular systolic pressure, as measured by Doppler, is 37. 16mmHg. There is no pulmonic regurgitation present. The aortic root size is normal. Normal inferior vena cava with normal inspiratory collapse consistent with estimated right atrial pre ssure of 5 mmHg. There is a trivial pericardial effusion present. CONCLUSIONS -------- 1. The left ventricular size is normal. 2. Left ventricular wall thickness is normal. 3. Overall left ventricular systolic function is normal with, an EF between 55 - 60 %. 4. The LV end diastolic pressure is elevated 18.62. 5. Aortic valve is trileaflet and is mildly thickened. 6. Mild mitral regurgitation is present. 7. Mild tricuspid regurgitation present. 8. There is mild pulmonary hypertension. 9. The right ventricular systolic pressure, as measured by Doppler, is 37.16mmHg. 10. There is a trivial pericardial effusion present. [employer] MIXING MACHINE OPERATOR: Kayla Rutherford RDCS
[2020-09-28] MEDS: LORATADINE 10 MG TAB PO SCH (21:14)
[2020-09-28] MEDS: DORZOLAMIDE HCL 2% DROPS 10 ML BTL RIGHT EYE SCH (21:15)
[2020-09-28] MEDS: FLUTICASONE 50MCG/SPRAY NASAL 16GM EA NOSTRIL SCH (21:15)
[2020-09-28] MEDS: TIMOLOL 0.5% OPHTH DROPS 5 ML BTL BOTH EYES SCH (21:15)
[2020-09-29] MEDS: LEVOTHYROXINE 50 MCG TAB PO SCH (05:25)
[2020-09-29 06:27] LABS: Mean Platelet Volume 8.4; Platelet Count 205 k/uL (150-450)
[2020-09-29] MEDS ORDERED: ALPRAZolam 0.5 MG TAB PO PRN (07:19)
[2020-09-29] MEDS ORDERED: ASPIRIN 325 MG TAB PO STA (07:19)
[2020-09-29] MEDS ORDERED: ALPRAZolam 0.25 MG TAB PO PRN (07:19)
[2020-09-29] MEDS ORDERED: NITROGLYCERIN SL TABS 0.4 MG TAB SUBLINGUAL PRN ×2 (07:19→17:53)
[2020-09-29] MEDS ORDERED: ATORVASTATIN 80 MG TAB PO STA (07:19)
[2020-09-29] MEDS ORDERED: SODIUM CHLORIDE 0.9% 1,000 ML in EMPTY BAG 1 BAG IV ONE ×2 (07:19→23:00)
[2020-09-29] MEDS: VIT A,C & E-LUTEIN-MINERALS 1 EACH TAB PO SCH (08:33)
[2020-09-29] MEDS: ISOSORBIDE MONONITRATE ER 30 MG TAB.ER.24H PO SCH (08:33)
[2020-09-29] MEDS: CHOLECALCIFEROL 25 MCG (1000 IU) TABLET PO SCH (08:33)
[2020-09-29] MEDS: ASCORBIC ACID 500 MG TAB PO SCH (08:33)
[2020-09-29] MEDS: DORZOLAMIDE HCL 2% DROPS 10 ML BTL RIGHT EYE SCH ×2 (08:34→20:23)
[2020-09-29] MEDS: lisinopriL 10 MG TAB PO SCH (08:34)
[2020-09-29] MEDS: NON FORMULARY DRUG (Biotin [Biotin] 5,000 MCG Tab.Rapdis) PO SCH (08:35)
[2020-09-29] MEDS: TIMOLOL 0.5% OPHTH DROPS 5 ML BTL BOTH EYES SCH ×2 (08:36→20:24)
[2020-09-29] MEDS: TURMERIC CURCUMIN PO SCH (08:36)
[2020-09-29] MEDS: NON FORMULARY DRUG (Calcium/Magnesium/Zinc [Calcium-Magnesium-Zinc Tablet] 1 EACH Tablet) PO SCH (08:36)
[2020-09-29] MEDS: NON FORMULARY DRUG (Glucosam/Chon-Msm1/C/Mang/Bosw [Glucosamine-Chondroitin Tablet] 1 EACH PO SCH (08:36)
[2020-09-29 09:35] LABS: Glucose,Whole Blood 89 mg/dL (75-99)
--- NOTE | 2020-09-29 10:03 | P.PN ---
Subjective Progress Note Date: 09/29/20 Erica Zuniga, he is a 80-year-old female patient of Dr. 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 Patient had a first episode of chest pain on Wednesday 5 days ago she saw her primary care physician Dr. Ruvalcaba, she had an EKG that was described as abnormal, an outpatient appointment was made for patient to see cardiology, and she was told to come to emergency room if she had a second episode of chest pain. Patient had chest pain again on Wednesday night and she came to emergency room. Patient was evaluated in the emergency room her vital examination on presentation reveals a temperature of 97.3 pulse 69 respiration 20 blood pressure 165/80 pulse ox 99% on room air her white blood count was 7.1 hemoglobi n 13.2 platelet count 223 d-dimer 0.21 sodium 135 potassium 4.1 chloride 102 BUN 22 creatinine 0.85 troponin level less than 0.012 lipase 251 Forrest virus PCR was negative. EKG in the emergency room revealed normal sinus rhythm with nonspecific ST and T-wave abnormalities and prolonged QT. Chest x-ray on presentation revealed no active cardiopulmonary disease. Patient was admitted to observation unit she was started on IV heparin cardiology consultation was requested. Past medical history is significant for history of hypertension, history of hypothyroidism, history of osteoarthritis, and history of carotid stenosis. Patient stated that she used to smoke she quit 30 years, she denies any previous history of chest pain and angina myocardial infarction or congestive heart failure, she denies ever being diagnosed with asthma or emphysema. On 09/29/2020 patient alert and oriented 3 resting comfortably in bed. At this time patient denies chest pain. Patient did report some shortness of breath after showering this morning. Patient denies nausea vomiting or diarrhea. Patient denies any urinary burning or frequency. Patient will undergo cardiac catheterization today. 2-D echo was completed showing an EF of 55-60%. Objective - Vital Signs Vital signs: Vital Signs Temp 97.4 F L 09/29/20 07:00 Pulse 61 09/29/20 07:00 Resp 18 09/29/20 07:00 BP 193/74 09/29/20 07:00 Pulse Ox 98 09/29/20 07:00 Intake & Output 09/28/20 09/29/20 09/29/20 18:59 06:59 18:59 Intake Total 240 Output Total 50 250 Balance 240 -50 -250 Weight 62.596 kg Intake: Oral 240 Output: Urine 50 250 Other: Voiding Method Toilet Toilet # Voids 3 1 - Exam In general patient is alert and oriented in no apparent distress HEENT head normocephalic and atraumatic Neck is supple no JVD no goiter no lymphadenopathy Chest exam reveals a few scattered rhonchi no wheezing Cardiac exam reveals regular heart sounds S1 and S2 no gallops no murmurs Abdomen is soft nontender no organomegaly with normal bowel sounds Extremity exam reveals no edema no cyanosis or clubbing Neurological examination reveals no gross focal deficit - Labs CBC & Chem 7: 09/29/20 06:04 09/27/20 21:13 Labs: Abnormal Lab Results - Last 24 Hours (Table) 09/28/20 Range/Units 10:30 APTT 43.9 H (22.0-30.0) sec Assessment and Plan Plan: 1. Chest pain, serial EKG and cardiac enzymes ordered patient is maintained on IV heparin. Troponins negative. Per cardiology patient will undergo cardiac catheterization today 2. Underlying history of hypertension home medications reviewed and review there 3. Underlying history of hypothyroidism maintained on Synthroid was continued 4. Underlying history of osteoarthritis Plans for cardiac catheterization today 09/29/2020
[2020-09-29] MEDS ORDERED: IV FLUID CONTINUATION 1,000 ML IV ONE (14:45)
[2020-09-29] MEDS ORDERED: LIDOCAINE 1% INJ 10MG/ML (20 ML MDV) ONE (14:55)
[2020-09-29] MEDS ORDERED: fentaNYL (PF) 50 MCG/ML 2 ML AMP ONE (14:55)
[2020-09-29] MEDS ORDERED: VERAPAMIL 2.5 MG/ML 2 ML AMP ONE (14:55)
[2020-09-29] MEDS ORDERED: fentaNYL (PF) 50 MCG/ML 2 ML AMP IV ONE (15:08)
[2020-09-29] MEDS ORDERED: LIDOCAINE 1% INJ 10MG/ML (20 ML MDV) SQ ONE (15:08)
[2020-09-29] MEDS ORDERED: MIDAZOLAM 2 MG/2 ML VIAL IV ONE (15:08)
[2020-09-29] MEDS ORDERED: HEPARIN SODIUM 1,000 UN/ML (10ML VL) ONE (15:09)
[2020-09-29] MEDS ORDERED: VERAPAMIL SYRINGE (5 MG/10 ML) INTRAARTER ONE (15:10)
[2020-09-29] MEDS ORDERED: HEPARIN SODIUM 1,000 UN/ML (10ML VL) IV ONE (15:11)
[2020-09-29] MEDS ORDERED: CLOPIDOGREL 75 MG TAB ONE (15:26)
[2020-09-29] MEDS ORDERED: CLOPIDOGREL 75 MG TAB PO ONE (15:30)
[2020-09-29] MEDS ORDERED: NITROGLYCERIN 1000MCG/10ML SYRINGE INTRACORON ONE ×2 (15:44→15:55)
[2020-09-29] MEDS ORDERED: IOPAMIDOL-370 125ML BTL INJ ONE (15:47)
[2020-09-29] MEDS ORDERED: IOPAMIDOL-370 100ML BTL INJ ONE (15:59)
[2020-09-29] MEDS ORDERED: ATROPINE SULFATE 0.1 MG/ML 10ML SYRINGE IV PRN (17:53)
[2020-09-29] MEDS ORDERED: ZOLPIDEM 5 MG TAB PO PRN (17:53)
[2020-09-29] MEDS ORDERED: MAG HYDROX/AL HYDROX/SIMETH 30 ML CUP PO PRN (17:53)
[2020-09-29] MEDS ORDERED: RX INFO: IV CONTRAST WAS GIVEN 1 EACH MISC MISCELLANE PRN (17:53)
[2020-09-29] MEDS ORDERED: SODIUM CHLORIDE 0.9% 1,000 ML IV SCH (18:00)
[2020-09-29] MEDS: LORATADINE 10 MG TAB PO SCH (20:23)
[2020-09-29] MEDS: FLUTICASONE 50MCG/SPRAY NASAL 16GM EA NOSTRIL SCH (20:23)
--- NOTE | 2020-09-29 23:21 | P.PRCINT ---
Percutaneous Coronary Int. - Percutaneous Coronary Intervention Percutaneous Coronary Intervention: PROCEDURES PERFORMED: Left heart catheterization, bilateral coronary angiography, PCI of mid LAD with a 3.0 x 15mm Xience KAVEH, post dilated with a 3.75 NC balloon. INDICATION: Unstable angina HISTORY: This is a 80-year-old female with a past medical history significant for hypothyroidism and former nicotine dependence who presented with 2 episodes of chest pain while at rest in the last week and presented to the ER with normal troponins. SHe admits to some RODRIGUEZ over the last few weeks additionally and given concern of more typical symptoms, patient desired to proceed directly to [facility]. CONSENT:I have discussed the risks, benefits and alternative therapies for the above-mentioned procedure and for both sedation/analgesia as well as necessary blood product administration, if indicated, as they pertain to this patient. The patient has indicated understanding and acceptance of the risks and procedures discussed. PROCEDURE: After the risks, benefits and alternatives of the above mentioned procedure explained in detail with the patient, informed consent was obtained. Patient was taken to the catheterization lab and prepped and draped in usual fashion. 1% lidocaine was used to anesthetize the right radial artery. A 6- [place] sheath was placed in the right radial artery using modified Seldinger technique. Left coronary angiography was performed with a 6-[place] FL 3.5 catheter. The left main was very short requiring selective LAD and circumflex engagement. Right coronary angiography was performed with a 6Fr FR5 catheter in various views. The FR5 was advanced into the LV and pressure measurements were obtained. The decision was made to intervene on the LAD. Heparin was given for ACT > 250. A 0.014 BMW guidewire was inserted into the distal LAD. A second 0.014 BMW wire was advanced into the diagonal 1 branch. Next a 2.25 x 12mm balloon was used to predilate the mid LAD lesion. A 3.0 x 15mm Xience KAVEH was placed at the mid LAD. The proximal part of the stent was post dilated with a 3.75 x 8mm NC balloon. Pre intervention there was NEREYDA 3 flow and 95% stenosis and post intervention there was 0% stenosis and NEREYDA 3 flow with no dissection. The wires were pulled and final angiograms were taken. The right radial sheath was removed and a TR band was placed with hemostasis achieved. The patient tolerated the procedure well. Patient was transported back to the post catheterization holding area in stable condition. Conscious Sedation: Patient was monitored under the direct supervision of vision of myself for conscious sedation using Versed and fentanyl for a total duration of 66 minutes HEMODYNAMICS: Aorta: 135/52 LV: 147/2 LVEDP 11 mmHg SELECTIVE CORONARY ARTERIOGRAPHY: LEFT MAIN: The left main is a large caliber, very short vessel which bifurcates into the LAD and circumflex. There is no significant stenosis. LEFT ANTERIOR DESCENDING CORONARY ARTERY: LAD is a large caliber vessel which wraps around to the apex. There is 20% proximal LAD stenosis. There is a mid LAD 95% stenosis just prior to a moderate caliber diagonal 1 branch. Otherwise there are mild luminal irregularities. LEFT CIRCUMFLEX CORONARY ARTERY: Left circumflex is a large caliber vessel which has a mild luminal irregularities. The circumflex gives off a PDA and PLV branch and is the dominant vessel. RIGHT CORONARY ARTERY: The right coronary artery is a small caliber nondominant vessel without significant stenosis. FINAL IMPRESSION: 1. Single vessel CAD as described above with 95% mid LAD s/p PCI of mid LAD with a 3.0 x 15mm Xience KAVEH, post dilated with a 3.75 NC balloon. 2. Normal left sided filling pressures PLAN: 1. Aggressive risk factor modification per most recent ACC/AHA guidelines. 2. Continue dual antiplatelets for 12 months.
[2020-09-30] MEDS: LEVOTHYROXINE 50 MCG TAB PO SCH (05:42)
[2020-09-30 05:47] LABS: Basophils % (A) 1 %; Eosinophils # (A) 0.3 k/uL (0-0.7); Eosinophils % (A) 5 %; HCT 39.9 % (34.0-46.0); HGB 13.2 gm/dL (11.4-16.0); Lymphocytes # (A) 1.6 k/uL (1.0-4.8); Lymphocytes % (A) 27 %; MCH 31.1 pg (25.0-35.0); MCV 94.2 fL (80.0-100.0); Monocytes # (A) 0.4 k/uL (0-1.0); Monocytes % (A) 7 %; Neutrophils # (A) 3.6 k/uL (1.3-7.7); Neutrophils % (A) 59 %; Platelet Count 210 k/uL (150-450); RBC 4.23 m/uL (3.80-5.40); RDW 14.2 % (11.5-15.5); WBC 6.1 k/uL (3.8-10.6)
[2020-09-30] MEDS ORDERED: ASPIRIN 325 MG TAB PO ONE (06:00)
[2020-09-30] MEDS ORDERED: ATORVASTATIN 80 MG TAB PO ONE (06:00)
[2020-09-30] MEDS ORDERED: HEPARIN SODIUM,PORCINE 10,000 UNIT in SODIUM CHLORIDE 0.9% 1,000 ML IRRIGATION PRN ×4 (07:00)
[2020-09-30] MEDS ORDERED: HEPARIN SODIUM,PORCINE 2,500 UNIT in SODIUM CHLORIDE 0.9% 250 ML IRRIGATION PRN ×4 (07:00)
[2020-09-30 07:49] VITALS: BP 157/85; PULSE 65; RESP 14; TEMP 97.6
[2020-09-30] MEDS: lisinopriL 10 MG TAB PO SCH (08:35)
[2020-09-30] MEDS: ISOSORBIDE MONONITRATE ER 30 MG TAB.ER.24H PO SCH (08:36)
[2020-09-30] MEDS: NON FORMULARY DRUG (Biotin [Biotin] 5,000 MCG Tab.Rapdis) PO SCH (08:37)
[2020-09-30] MEDS: ASCORBIC ACID 500 MG TAB PO SCH (08:37)
[2020-09-30] MEDS: CHOLECALCIFEROL 25 MCG (1000 IU) TABLET PO SCH (08:37)
[2020-09-30] MEDS: NON FORMULARY DRUG (Calcium/Magnesium/Zinc [Calcium-Magnesium-Zinc Tablet] 1 EACH Tablet) PO SCH (08:37)
[2020-09-30] MEDS: TIMOLOL 0.5% OPHTH DROPS 5 ML BTL BOTH EYES SCH (08:38)
[2020-09-30] MEDS: DORZOLAMIDE HCL 2% DROPS 10 ML BTL RIGHT EYE SCH (08:38)
[2020-09-30] MEDS: NON FORMULARY DRUG (Glucosam/Chon-Msm1/C/Mang/Bosw [Glucosamine-Chondroitin Tablet] 1 EACH PO SCH (08:38)
[2020-09-30] MEDS: TURMERIC CURCUMIN PO SCH (08:39)
[2020-09-30] MEDS: VIT A,C & E-LUTEIN-MINERALS 1 EACH TAB PO SCH (08:39)
[2020-09-30] MEDS ORDERED: CLOPIDOGREL 75 MG TAB PO SCH (09:00)
[2020-09-30] MEDS ORDERED: METOPROLOL SUCCINATE (ER) 25 MG TAB.ER.24H PO SCH (09:00)
[2020-09-30] MEDS ORDERED: ASPIRIN 81 MG PO SCH (09:00)
[2020-09-30] MEDS ORDERED: NON FORMULARY DRUG (Alendronate Sodium [Fosamax] 70 MG Tablet) PO SCH (09:00)
[2020-09-30 09:27] LABS: African American GFR (CKD) 81.3 (60.0-200.0); Albumin 3.9 g/dL (3.80-4.90); Albumin/Globulin Ratio 2.05 (1.60-3.17); Anion Gap 3.6 mmol/L (4.00-12.00); BUN/Creat Ratio 17.5 Ratio (12.00-20.00); Calcium 8.8 mg/dL (8.7-10.3); Carbon Dioxide 26.4 mmol/L (21.6-31.8); Globulin 1.9 g/dL (1.6-3.3); Non-African American GFR(CKD) 70.1 (60.0-200.0); Potassium 4.1 mmol/L (3.5-5.5); Total Bilirubin 0.4 mg/dL (0.3-1.2); Total Protein 5.8 g/dL (6.2-8.2)
[2020-09-30] MEDS ORDERED: ATORVASTATIN 80 MG TAB PO SCH (11:15)
--- NOTE | 2020-09-30 11:20 | P.PN ---
Subjective This is a 80-year-old female with a past medical history significant for hypothyroidism and former nicotine dependence. Patient does not follow with a waiver analyst. Cardiology consulted for chest pain. She presented with 2 episodes of chest pain while at rest in the past week, RODRIGUEZ over a few weeks. EKG sinus mechanism with PVCs, normal troponins. Patient underwent left heart cardiac catheterization which showed single vessel CAD with 95% mid LAD with stent placement on 09/29/20. Patient is seen and examined this morning, in no acute dis tress. She denies chest pain, shortness of breath, dizziness, lightheadedness, nausea, abdominal pain. Echo revealed EF of 55-60%, mild mitral regurgitation, mild tricuspid regurgitation, mild pulmonary hypertension. Laboratory data: WBC 6.1. Hemoglobin 13.2. Platelet count 210. Sodium 140. Potassium 4.1. BUN 14. Creatinine 0.85. Current cardiac medications include aspirin 81 mg daily, Plavix 75 mg daily, Imdur 30 mg daily, lisinopril 10 mg daily, Toprol 12.5 mg daily PHYSICAL EXAM: VITAL SIGNS: BP 157/85, heart rate 65, 98% on room air, afebrile GENERAL: Well-developed in no acute distress. HEENT: Head is normocephalic. Pupils are equal, round. Sclerae anicteric. Mucous membranes of the mouth are moist. Neck supple. No JVD or thyromegaly LUNGS: Respirations even and unlabored. Lungs essentially clear to auscultation bilaterally. HEART: Regular rate and rhythm. S1 and S2 heard. ABDOMEN: Soft. Nondistended. Nontender. EXTREMITIES: Normal range of motion. No clubbing or cyanosis. Peripheral pulses intact. No lower extremity edema Right Radal cath site: strong distal pulses no ecchymosis, no bleeding NEUROLOGIC: Awake and alert. Oriented x 3. ASSESSMENT: Unstable Angina Hypertension Hypothyroidism Former nicotine dependence PLAN: -Patient ok to be discharged from cardiac perspective. Patient to follow up with Dr. Rodriguez in the outpatient clinic patient has an appointment on 10/02/20 -Will stop Imdur medication -Will start statin- atorvastatin 80mg daily -Patient to continue aspirin 81 mg daily, Plavix 75 mg daily, lisinopril 10 mg daily, Toprol 12.5 mg daily Nurse practitioner note has been reviewed by physician. Signing provider agrees with the documented findings, assessment, and plan of care. Objective - Vital Signs Vital signs: Vital Signs Temp 97.6 F 09/30/20 07:00 Pulse 65 09/30/20 07:00 Resp 14 09/30/20 07:00 BP 157/85 09/30/20 07:00 Pulse Ox 98 09/30/20 08:55 Intake & Output 09/29/20 09/30/20 09/30/20 18:59 06:59 18:59 Intake Total 740 120 100 Output Total 250 600 Balance 490 -480 100 Intake: IV 200 Oral 540 120 100 Output: Urine 250 600 Other: Voiding Method Toilet Toilet Toilet # Voids 2 1 - Labs CBC & Chem 7: 09/30/20 05:22 09/30/20 05:22 Labs: Abnormal Lab Results - Last 24 Hours (Table) 09/30/20 Range/Units 05:22 Chloride 110 H (96-109) mmol/L Anion Gap 3.60 L (4.00-12.00) mmol/L Total Protein 5.8 L (6.2-8.2) g/dL
[2020-09-30 13:47] VITALS: BMI 26.0
--- NOTE | 2020-10-04 10:35 | P.DS ---
Providers Date of admission: 09/27/20 23:24 Expected date of discharge: 09/30/20 Attending physician: Rama Duron Consults: 09/27/20 22:46 Consult Physician Urgent Consulting Provider: Rocky Polanco Consult Reason/Comments: chest pain Do you want consulting provider notified?: Yes 09/29/20 17:53 Consult Physician Routine Consulting Provider: [facility] Consult Reason/Comments: Post Interventional patient Do you want consulting provider notified?: Already Contacted Primary care physician: Raisa Ruvalcaba Hospital Course: Diagnoses on discharge: 1. Chest pain, serial EKG and cardiac enzymes ordered patient is maintained on IV heparin. Troponins negative. Discussed cardiac catheterization with stent placement to the LAD on 09/29/2020 2. Underlying history of hypertension home medications reviewed and review there 3. Underlying history of hypothyroidism maintained on Synthroid was continued 4. Underlying history of osteoarthritis Hospital course: Erica Zuniga, he is a 80-year-old female patient of Dr. Ruvalcaba, who presented to [facility] emergency room with a chief complaint of chest pain patient describes a pressure sensation in the middle of her chest radiating to the back and the system support analyst 8 with shortness of breath there is no nausea or vomiting no diaphoresis and no radiation of the pain to the jaw or to the arms. Patient had a first episode of chest pain on Wednesday 5 days ago she saw her primary care physician Dr. Ruvalcaba, she had an EKG that was described as abnormal, an outpatient appointment was made for patient to see cardiology, and she was told to come to emergency room if she had a second episode of chest pain. Patient had chest pain again on Wednesday night and she came to emergency room. Patient was evaluated in the emergency room her vital examination on presentation reveals a temperature of 97.3 pulse 69 respiration 20 blood pressure 165/80 pulse ox 99% on room air her white blood count was 7.1 hemoglobin 13.2 platelet count 223 d-dimer 0.21 sodium 135 potassium 4.1 chloride 102 BUN 22 creatinine 0.85 troponin level less than 0.012 lipase 251 Forrest virus PCR was negative. EKG in the emergency room revealed normal sinus rhythm with nonspecific ST and T-wave abnormalities and prolonged QT. Chest x- ray on presentation revealed no active cardiopulmonary disease. Patient was admitted to observation unit she was started on IV heparin cardiology consultation was requested. Past medical history is significant for history of hypertension, history of hypothyroidism, history of osteoarthritis, and history of carotid stenosis. Patient stated that she used to smoke she quit 30 years, she denies any previous history of chest pain and angina myocardial infarction or congestive heart failure, she denies ever being diagnosed with asthma or emphysema. On 09/29/2020 patient alert and oriented 3 resting comfortably in bed. At this time patient denies chest pain. Patient did report some shortness of breath after showering this morning. Patient denies nausea vomiting or diarrhea. Patient denies any urinary burning or frequency. Patient will undergo cardiac catheterization today. 2-D echo was completed showing an EF of 55-60%. On 09/30/2020 patient cleared for discharge from cardiology standpoint status post cardiac catheterization with stent placed to the LAD on 09/29/2020. Medications adjusted and patient discharged on Plavix aspirin Lipitor, Lopressor and lisinopril. Patient advised to follow up with cardiology services and PCP for further management Patient Condition at Discharge: Fair Plan - Discharge Summary Discharge Rx Participant: No New Discharge Prescriptions: New Clopidogrel [Plavix] 75 mg PO DAILY 90 Days #90 tab Aspirin 81 mg PO DAILY #0 chew Atorvastatin [Lipitor] 80 mg PO DAILY 90 Days #90 tab Metoprolol Succinate (ER) [Toprol XL] 12.5 mg PO DAILY 90 Days #90 tab.er.24h lisinopriL [Zestril] 10 mg PO DAILY 90 Days #90 tab Nitroglycerin Sl Tabs [Nitrostat] 0.4 mg SUBLINGUAL Q5M PRN tab PRN Reason: Chest Pain Continue Levothyroxine Sodium [Synthroid] 50 mcg PO DAILY Fexofenadine HCl [Anais Allergy] 180 mg PO HS Mometasone Furoate [Nasonex Nasal [place]] 1 spray EA NOSTRIL HS Vits A,C,E/Lutein/Minerals [Vision Formula with Lutein Tab] 1 tab PO DAILY Cholecalciferol [Vitamin D3 (25 Mcg = 1000 Iu)] 50 mcg PO DAILY Biotin 5,000 mcg PO DAILY Ascorbic Acid [Vitamin C] 1,000 mg PO DAILY Glucosam/Md-Msm1/C/Tamir/Bosw [Glucosamine-Chondroitin Tablet] 1 tab PO DAILY Citrucel Caps 3 cap PO HS Calcium/Magnesium/Zinc [Dbmqdjr-Omsvupsux-Vmuw Tablet] 1 tab PO DAILY Ketoconazole [Ketoconazole 2%] 1 applic TOPICAL BID PRN PRN Reason: Rash Hydrocortisone Cream [Hydrocortisone 2.5% Cream] 1 applic TOPICAL BID PRN PRN Reason: Rash Timolol 0.5% Ophth Soln [Timoptic 0.5% Ophth Soln] 1 drop BOTH EYES BID Dorzolamide HCl/Pf [Dorzolamide 2% Eye Drop] 1 drop RIGHT EYE BID Alendronate Sodium [Fosamax] 70 mg PO MO Turmeric Curcumin 1500mg 1,500 mg PO DAILY Discontinued Isosorbide Mononitrate ER [Imdur] 30 mg PO DAILY Discharge Medication List Fexofenadine HCl [Anais Allergy] 180 mg PO HS 01/01/15 [History] Levothyroxine Sodium [Synthroid] 50 mcg PO DAILY 01/01/15 [History] Mometasone Furoate [Nasonex Nasal [place]] 1 spray EA NOSTRIL HS 01/01/15 [History] Alendronate Sodium [Fosamax] 70 mg PO MO 09/27/20 [History] Ascorbic Acid [Vitamin C] 1,000 mg PO DAILY 09/27/20 [History] Biotin 5,000 mcg PO DAILY 09/27/20 [History] Calcium/Magnesium/Zinc [Huwrhld-Ikcoxhbja-Vnpt Tablet] 1 tab PO DAILY 09/27/20 [History] Cholecalciferol [Vitamin D3 (25 Mcg = 1000 Iu)] 50 mcg PO DAILY 09/27/20 [History] Citrucel Caps 3 cap PO HS 09/27/20 [History] Dorzolamide HCl/Pf [Dorzolamide 2% Eye Drop] 1 drop RIGHT EYE BID 09/27/20 [History] Glucosam/Dm-Msm1/C/Tamir/Bosw [Glucosamine-Chondroitin Tablet] 1 tab PO DAILY 09/27/20 [History] Hydrocortisone Cream [Hydrocortisone 2.5% Cream] 1 applic TOPICAL BID PRN 09/27/20 [History] Ketoconazole [Ketoconazole 2%] 1 applic TOPICAL BID PRN 09/27/20 [History] Timolol 0.5% Ophth Soln [Timoptic 0.5% Ophth Soln] 1 drop BOTH EYES BID 09/27/20 [History] Turmeric Curcumin 1500mg 1,500 mg PO DAILY 09/27/20 [History] Vits A,C,E/Lutein/Minerals [Vision Formula with Lutein Tab] 1 tab PO DAILY 09/27/20 [History] Aspirin 81 mg PO DAILY #0 chew 09/30/20 [Rx] Atorvastatin [Lipitor] 80 mg PO DAILY 90 Days #90 tab 09/30/20 [Rx] Clopidogrel [Plavix] 75 mg PO DAILY 90 Days #90 tab 09/30/20 [Rx] Metoprolol Succinate (ER) [Toprol XL] 12.5 mg PO DAILY 90 Days #90 tab.er.24h 09/30/20 [Rx] Nitroglycerin Sl Tabs [Nitrostat] 0.4 mg SUBLINGUAL Q5M PRN tab 09/30/20 [Rx] lisinopriL [Zestril] 10 mg PO DAILY 90 Days #90 tab 09/30/20 [Rx] Follow up Appointment(s)/Referral(s): Raisa Ruvalcaba MD [Primary Care Provider] - 1-2 days Mickey Clement DO [STAFF PHYSICIAN] - 10/02/20 Patient Instructions/Handouts: *Surgery [facility] - After Heart Catheterization - Wire Border Assembler Instructions, Left Heart Catheterization (DC) Activity/Diet/Wound Care/Special Instructions: heart cath with stent completed 09/29/[address] clement right wrist puncture site-follow activity discharge instructions heart healthy diet as tolerated Discharge Disposition: HOME SELF-CARE
== END 2020-09-30 13:20 | disposition home or self-care (01) ==
LOC: EC 20:29 → 6NMEDSUR 23:24 → OBSVTOIN 23:24 → INTOOBSV 23:24 → 6NMEDSUR 09-28 06:46 → UNDODISIN 09-30 13:20 → UNDODISOB 09-30 13:20
PROVIDERS: ADMIT Internal Medicine; ATTEND Internal Medicine
DX: I25.110 Atherosclerotic heart disease of native coronary artery with unstable angina pectoris (principal); I10 Essential (primary) hypertension; E03.9 Hypothyroidism, unspecified; Z79.890 Hormone replacement therapy; M19.90 Unspecified osteoarthritis, unspecified site; Z87.891 Personal history of nicotine dependence; R21 Rash and other nonspecific skin eruption; J30.2 Other seasonal allergic rhinitis; I27.20 Pulmonary hypertension, unspecified; I08.1 Rheumatic disorders of both mitral and tricuspid valves; I65.29 Occlusion and stenosis of unspecified carotid artery; G89.29 Other chronic pain; M54.9 Dorsalgia, unspecified; Z90.49 Acquired absence of other specified parts of digestive tract; Z87.19 Personal history of other diseases of the digestive system; Z98.1 Arthrodesis status; Z85.9 Personal history of malignant neoplasm, unspecified; Z20.822 Contact with and (suspected) exposure to COVID-19; Z79.899 Other long term (current) drug therapy; Z88.5 Allergy status to narcotic agent; Z88.0 Allergy status to penicillin; Z88.1 Allergy status to other antibiotic agents; Z90.710 Acquired absence of both cervix and uterus; Z79.83 Long term (current) use of bisphosphonates; Z82.3 Family history of stroke
CPT/HCPCS: 96366 ×2; 93005 ×3; 96376; 96365; 99285; 36415; 94760; 93306; 93458; 85347; 85379; 80061; 80053 ×2; 83690; 83735; 84484 ×2; 85025 ×2; 85049 ×2; 85610; 85730 ×2; 87635; 71046; G0378 ×4; C9600; C1769 ×2; C1887 ×2; C1725 ×2; C1874; C1894; J2250; J1644 ×3; J2001; J3010; Q9967 ×2; 96374

== ENCOUNTER 2022-11-10 10:18 | Day surgery (SDC) | payer MEDICARE ==
[2022-11-09 09:03] VITALS: BMI 26.4
[~2022-11-10 10:18] MED LIST: ALPRAZolam 0.25 MG TAB PO PRN; ALPRAZolam 0.5 MG TAB PO PRN; ASPIRIN 325 MG TAB PO STA; ATORVASTATIN 80 MG TAB PO STA; HEPARIN SODIUM,PORCINE 10,000 UNIT in SODIUM CHLORIDE 0.9% 1,000 ML IRRIGATION PRN; HEPARIN SODIUM,PORCINE 2,500 UNIT in SODIUM CHLORIDE 0.9% 250 ML IRRIGATION PRN; NITROGLYCERIN SL TABS 0.4 MG TAB SUBLINGUAL PRN; SODIUM CHLORIDE 0.9% 1,000 ML in EMPTY BAG 1 BAG IV ONE
[2022-11-10] MEDS ORDERED: SODIUM CHLORIDE 0.9% 1,000 ML IV ONE ×2 (10:21→13:30)
[2022-11-10 10:46] VITALS: RESP 16; TEMP 97.6
[2022-11-10] MEDS ORDERED: hydrALAZINE HCL 20 MG/ML 1 ML VIAL IVP STA (10:54)
[2022-11-10] MEDS ORDERED: VERAPAMIL 2.5 MG/ML 2 ML AMP ONE ×2 (11:51→12:34)
[2022-11-10] MEDS ORDERED: fentaNYL (PF) 50 MCG/ML 2 ML AMP ONE (11:52)
[2022-11-10] MEDS ORDERED: fentaNYL (PF) 50 MCG/ML 2 ML AMP IV ONE (12:17)
[2022-11-10] MEDS ORDERED: MIDAZOLAM 2 MG/2 ML VIAL IV ONE (12:17)
[2022-11-10] MEDS ORDERED: LIDOCAINE 1% INJ 10MG/ML (5 ML VIAL-PF) SQ ONE (12:24)
[2022-11-10] MEDS ORDERED: VERAPAMIL SYRINGE (5 MG/10 ML) INTRAARTER ONE (12:25)
[2022-11-10] MEDS: HEPARIN SODIUM 1,000 UN/ML (10ML VL) IV ONE ×2 (12:27→13:09)
[2022-11-10] MEDS ORDERED: CLOPIDOGREL 75 MG TAB ONE (12:42)
[2022-11-10] MEDS ORDERED: NITROGLYCERIN 1000MCG/10ML SYRINGE INTRACORON ONE ×2 (12:44→12:52)
[2022-11-10] MEDS ORDERED: CLOPIDOGREL 75 MG TAB PO ONE (12:45)
[2022-11-10] MEDS ORDERED: IOPAMIDOL-370 100ML BTL INJ ONE (12:58)
[2022-11-10] MEDS ORDERED: HYDROCORTISONE 1% CREAM 30 GM TUBE TOPICAL PRN (13:19)
[2022-11-10] MEDS ORDERED: CLOTRIMAZOLE 1% CREAM 30 GM TUBE TOPICAL PRN (13:19)
[2022-11-10] MEDS ORDERED: NITROGLYCERIN SL TABS 0.4 MG TAB SUBLINGUAL PRN (13:19)
[2022-11-10] MEDS ORDERED: RX INFO: IV CONTRAST WAS GIVEN 1 EACH MISC MISCELLANE PRN (13:21)
[2022-11-10] MEDS ORDERED: ATROPINE SULFATE 0.1 MG/ML 10ML SYRINGE IV PRN (13:21)
[2022-11-10] MEDS ORDERED: MAG HYDROX/AL HYDROX/SIMETH 30 ML CUP PO PRN (13:21)
[2022-11-10] MEDS ORDERED: ZOLPIDEM 5 MG TAB PO PRN (13:21)
[2022-11-10] MEDS ORDERED: SODIUM CHLORIDE 0.9% 1,000 ML in EMPTY BAG 1 BAG IV SCH (13:30)
[2022-11-10 16:34] VITALS: PULSE 72
[2022-11-10 17:31] VITALS: BP 121/72
[2022-11-10] MEDS ORDERED: MOMETASONE FUROATE EA NOSTRIL SCH (21:00)
[2022-11-10] MEDS ORDERED: PUMP EA NOSTRIL SCH (21:00)
[2022-11-10] MEDS ORDERED: CITRUCEL PO SCH (21:00)
[2022-11-10] MEDS ORDERED: METOPROLOL SUCCINATE (ER) 25 MG TAB.ER.24H PO SCH (21:00)
[2022-11-10] MEDS ORDERED: TIMOLOL 0.5% OPHTH DROPS 5 ML BTL BOTH EYES SCH (21:00)
[2022-11-10] MEDS ORDERED: DORZOLAMIDE HCL RIGHT EYE SCH (21:00)
[2022-11-10] MEDS ORDERED: NON FORMULARY DRUG (Fexofenadine Hcl [Allegra Allergy] 180 MG Tablet) PO SCH (21:00)
--- NOTE | 2022-11-10 21:04 | P.PRCINT ---
Percutaneous Coronary Int. - Percutaneous Coronary Intervention Percutaneous Coronary Intervention: PROCEDURES PERFORMED: Left heart catheterization, bilateral coronary angiography, PTCA of mid LAD with a 3.0 x 12mm NC balloon, IVUS of LAD. INDICATION: Unstable angina HISTORY: This is a 82-year-old female with a past medical history significant for hypothyroidism CAD and former nicotine dependence who has been having increased episodes of chest pain worse with exertion similar to her angina over the last 1 month and was recommended to undergo LHC. CONSENT:I have discussed the risks, benefits and alternative therapies for the above-mentioned procedure and for both sedation/analgesia as well as necessary blood product administration, if indicated, as they pertain to this patient. The patient has indicated understanding and acceptance of the risks and procedures discussed. PROCEDURE: After the risks, benefits and alternatives of the above mentioned procedure explained in detail with the patient, informed consent was obtained. Patient was taken to the catheterization lab and prepped and draped in usual fashion. 1% lidocaine was used to anesthetize the right radial artery. A 6- [place] sheath was placed in the right radial artery using modified Seldinger technique. Left coronary angiography was performed with a 6-[place] FL 3.5 catheter. The left main was very short requiring selective LAD and circumflex engagement. Right coronary angiography was performed with a 6Fr FR5 catheter in various views. The FR5 was advanced into the LV and pressure measurements were obtained. The decision was made to intervene on the LAD. Heparin was given for ACT > 250. A 0.014 BMW guidewire was inserted into the distal LAD. The distal edge of the stent was post dilated with a 3.0 NC balloon. Next IVUS was performed which showed minimal amount of disease of the distal and proximal edge of the stent with reference artery 2.75 x 3.0 and well expanded stent however minimally still underexpanded. The 3.0 NC balloon was again advanced and deployed at 16 atmospheres at the distal edge. Again IVUS was performed which showed excellent stent apposition with no dissection. Angiogram showed some pinching of diagonal branch with NEREYDA 3 flow and felt best treated medically. Pre intervention there was NEREYDA 3 flow and 99% stenosis and post intervention there was 0% stenosis and NEREYDA 3 flow with no dissection. The wires were pulled and final angiograms were taken. The right radial sheath was removed and a TR band was placed with hemostasis achieved. The patient tolerated the procedure well. Patient was transported back to the post catheterization holding area in stable condition. Conscious Sedation: Patient was monitored under the direct supervision of vision of myself for conscious sedation using Versed and fentanyl for a total duration of 48 minutes HEMODYNAMICS: Aorta: 129/56 LV: 133/2 LVEDP 10 mmHg SELECTIVE CORONARY ARTERIOGRAPHY: LEFT MAIN: The left main is a large caliber, very short vessel which bifurcates into the LAD and circumflex. There is no significant stenosis. LEFT ANTERIOR DESCENDING CORONARY ARTERY: LAD is a large caliber vessel which wraps around to the apex. There is 20% proximal LAD stenosis. There is a mid LAD stent which is patent other than a focal 99% stenosis at the distal end of the stent, just prior to a moderate caliber diagonal 1 branch. Otherwise there are mild luminal irregularities. LEFT CIRCUMFLEX CORONARY ARTERY: Left circumflex is a large caliber vessel which has a mild luminal irregularities. The circumflex gives off a PDA and PLV branch and is the dominant vessel. RIGHT CORONARY ARTERY: The right coronary artery is a small caliber nondominant vessel without significant stenosis. FINAL IMPRESSION: 1. Distal edge LAD instent stenosis, s/p balloon angioplasty with a 3.0 NC balloon 2. Normal left sided filling pressures PLAN: 1. Aggressive risk factor modification per most recent ACC/AHA guidelines. 2. Continue dual antiplatelets for 12 months with aspirin and Plavix.
[2022-11-11] MEDS ORDERED: LEVOTHYROXINE 50 MCG TAB PO SCH (06:30)
[2022-11-11] MEDS ORDERED: CLOPIDOGREL 75 MG TAB PO SCH (09:00)
[2022-11-11] MEDS ORDERED: ATORVASTATIN 80 MG TAB PO SCH (09:00)
[2022-11-11] MEDS ORDERED: ASCORBIC ACID 500 MG TAB PO SCH (09:00)
[2022-11-11] MEDS ORDERED: NON FORMULARY DRUG (Biotin [Biotin Disolve] 5,000 MCG Tab.Rapdis) PO SCH (09:00)
[2022-11-11] MEDS ORDERED: VIT A,C & E-LUTEIN-MINERALS 1 EACH TAB PO SCH (09:00)
[2022-11-11] MEDS ORDERED: CHOLECALCIFEROL 25 MCG (1000 IU) TABLET PO SCH (09:00)
[2022-11-11] MEDS ORDERED: NON FORMULARY DRUG (Glucosam/Chon-Msm1/C/Mang/Bosw [Glucosamine-Chondroitin Tablet] 1 EACH PO SCH (09:00)
[2022-11-11] MEDS ORDERED: TURMERIC CURCUMIN PO SCH (09:00)
[2022-11-11] MEDS ORDERED: NON FORMULARY DRUG (Calcium/Magnesium/Zinc [Calcium-Magnesium-Zinc Tablet] 1 EACH Tablet) PO SCH (09:00)
[2022-11-11] MEDS ORDERED: ASPIRIN 81 MG PO SCH (09:00)
[2022-11-16] MEDS ORDERED: NON FORMULARY DRUG (Alendronate Sodium [Fosamax] 70 MG Tablet) PO SCH (13:19)
== END 2022-11-10 17:32 | disposition home or self-care (01) ==
LOC: CATHCVL 10:18
PROVIDERS: ATTEND Internal Medicine
DX: I25.110 Atherosclerotic heart disease of native coronary artery with unstable angina pectoris (principal); T82.855A Stenosis of coronary artery stent, initial encounter; Y83.1 Surgical operation with implant of artificial internal device as the cause of abnormal reaction of the patient, or of later complication, without mention of misadventure at the time of the procedure; E03.9 Hypothyroidism, unspecified; I10 Essential (primary) hypertension; E78.5 Hyperlipidemia, unspecified; Z87.891 Personal history of nicotine dependence; Z79.01 Long term (current) use of anticoagulants; Z79.82 Long term (current) use of aspirin; Z79.890 Hormone replacement therapy; Z79.899 Other long term (current) drug therapy
CPT/HCPCS: 99152; 99153 ×2; 92978; 93458; 92920; C1769 ×3; C1887; C1894; C1753; C1725; J2250; J0360; J2001; J3010; J1644; Q9967

== ENCOUNTER 2022-12-01 09:50 | Inpatient (IN) | payer MEDICARE ==
[~2022-12-01 09:50] MED LIST changes: -ALPRAZolam 0.5 MG TAB PO PRN; +ASPIRIN 325 MG TAB PO ONE; -ASPIRIN 325 MG TAB PO STA; +ATORVASTATIN 80 MG TAB PO ONE; -ATORVASTATIN 80 MG TAB PO STA; -NITROGLYCERIN SL TABS 0.4 MG TAB SUBLINGUAL PRN; -SODIUM CHLORIDE 0.9% 1,000 ML in EMPTY BAG 1 BAG IV ONE; +SODIUM CHLORIDE 0.9% 1,000 ML in EMPTY BAG 1 BAG IV SCH
[2022-12-01 10:16] LABS: Basophils # (A) 0.1 k/uL (0-0.2); Basophils % (A) 1 %; Eosinophils # (A) 0.3 k/uL (0-0.7); Eosinophils % (A) 3 %; HCT 45.6 % (34.0-46.0); HGB 13.9 gm/dL (11.4-16.0); Hypochromasia Slight; Lymphocytes # (A) 1.8 k/uL (1.0-4.8); Lymphocytes % (A) 23 %; MCH 29.6 pg (25.0-35.0); MCHC 30.4 g/dL (31.0-37.0); MCV 97.1 fL (80.0-100.0); Mean Platelet Volume 8.3; Monocytes # (A) 0.5 k/uL (0-1.0); Monocytes % (A) 6 %; Neutrophils # (A) 5.1 k/uL (1.3-7.7); Neutrophils % (A) 65 %; Platelet Count 294 k/uL (150-450); RDW 13.8 % (11.5-15.5); WBC 7.8 k/uL (3.8-10.6)
[2022-12-01] MEDS ORDERED: hydrALAZINE HCL 20 MG/ML 1 ML VIAL IVP STA (10:16)
[2022-12-01] MEDS ORDERED: hydrALAZINE HCL 20 MG/ML 1 ML VIAL ONE (10:18)
[2022-12-01 10:25] LABS: Calcium 9.1 mg/dL (8.4-10.2)
[2022-12-01] MEDS ORDERED: VERAPAMIL 2.5 MG/ML 2 ML AMP ONE ×3 (11:22→13:11)
[2022-12-01] MEDS ORDERED: HEPARIN SODIUM 1,000 UN/ML (10ML VL) ONE (11:35)
[2022-12-01] MEDS ORDERED: fentaNYL (PF) 50 MCG/ML 2 ML AMP ONE (11:35)
[2022-12-01] MEDS: MIDAZOLAM 2 MG/2 ML VIAL IV ONE ×2 (11:48→12:10)
[2022-12-01] MEDS ORDERED: fentaNYL (PF) 50 MCG/ML 2 ML AMP IV ONE (11:48)
[2022-12-01] MEDS ORDERED: LIDOCAINE 1% INJ 10MG/ML (5 ML VIAL-PF) SQ ONE (11:49)
[2022-12-01] MEDS: VERAPAMIL SYRINGE (5 MG/10 ML) INTRAARTER ONE ×2 (12:03→12:23)
[2022-12-01] MEDS: HEPARIN SODIUM 1,000 UN/ML (10ML VL) IV ONE ×2 (12:09→12:42)
[2022-12-01] MEDS: NITROGLYCERIN 1000MCG/10ML SYRINGE INTRACORON ONE ×3 (12:46→13:34)
[2022-12-01] MEDS ORDERED: VERAPAMIL SYRINGE (5 MG/10 ML) INTRAARTER ONE (13:12)
[2022-12-01] MEDS ORDERED: ONDANSETRON 4 MG/2 ML VIAL ONE (13:51)
[2022-12-01] MEDS ORDERED: SODIUM CHLORIDE 0.9% 500 ML 500 ML IV ONE (13:53)
[2022-12-01] MEDS ORDERED: ATROPINE SULFATE 0.1 MG/ML 10ML SYRINGE IV PRN (13:53)
[2022-12-01] MEDS ORDERED: ZOLPIDEM 5 MG TAB PO PRN (13:53)
[2022-12-01] MEDS ORDERED: MAG HYDROX/AL HYDROX/SIMETH 30 ML CUP PO PRN (13:53)
[2022-12-01] MEDS ORDERED: ONDANSETRON 4 MG/2 ML VIAL IVP ONE (13:53)
[2022-12-01] MEDS ORDERED: IOPAMIDOL-370 200ML BTL INJ ONE (13:53)
[2022-12-01] MEDS ORDERED: RX INFO: IV CONTRAST WAS GIVEN 1 EACH MISC MISCELLANE PRN (13:53)
--- NOTE | 2022-12-01 14:29 | P.PRCINT ---
Percutaneous Coronary Int. - Percutaneous Coronary Intervention Percutaneous Coronary Intervention: PROCEDURES PERFORMED: Bilateral coronary angiography, iFR LAD, IVUS of LAD, PCI proximal to mid LAD with overlapping 3.5 x 15mm Xience and 2.75 x 38mm Xience KAVEH, post dilated with a 3.5 NC balloon, balloon angioplasty diagonal 1 with a 2.25 x 12mm NC balloon. INDICATION: Unstable angina HISTORY: This is a 82-year-old female with a past medical history significant for hypothyroidism CAD and former nicotine dependence who has been having increased episodes of chest pain worse with exertion similar to her angina. Symptoms were similar when she had balloon angioplasty of her mid LAD stent for instent stenosis and dyspnea had entirely improved for 1 week however over the last 2 weeks feels similar to before her interventions. CONSENT:I have discussed the risks, benefits and alternative therapies for the above-mentioned procedure and for both sedation/analgesia as well as necessary blood product administration, if indicated, as they pertain to this patient. The patient has indicated understanding and acceptance of the risks and procedures discussed. PROCEDURE: After the risks, benefits and alternatives of the above mentioned procedure explained in detail with the patient, informed consent was obtained. Patient was taken to the catheterization lab and prepped and draped in usual fashion. 1% lidocaine was used to anesthetize the left radial artery. A 6- [place] sheath was placed in the left radial artery using modified Seldinger technique. Left coronary angiography was performed with a 6-[place] FL 4.0 catheter. The left main was very short requiring selective LAD and circumflex engagement. Right coronary angiography was performed with a 5Fr FR5 catheter in various views. The decision was made to perform iFR of the LAD. Heparin was given for ACT > 250. Initially attempted a 6FR CLS 3.5 then a CLS 3.0 however difficult to engage to LAD selectively. Therefore a 6FR FL 3.5 guide was used to enagage the LAD. A 0.014 pressure wire was inserted into the left main/proximal LAD and n ormalized. It was then advanced 1cm distal to the LAD stent and this was performed twice with abnormal results with drop off just before and after the stent iFR was 0.86 and 0.88. Therefore the decision was made to perform PCI of the LAD. A 0.014 BMW wire was placed in the distal LAD and a second 0.014 BMW wire was advanced into the distal diagonal branch. Balloon angioplasty was performed with a 1.5 x 12 and a 2.25 x 12mm NC balloon. Next balloon angioplasty was performed of the proximal and distal edges of the stent with a 3.0 x 12mm NC balloon. Next IVUS was performed which showed reference vessel size 2.75mm distally with 3.5 x 4.0 vessel proximally. A 2.75 x 38mm Xience KAVEH was placed on top of the previous stent given some degree of instent stenosis previously. The proximal edge was post dilated with a 3.5 NC balloon. There was a step off proximally with 50% edge stenosis and therefore additional 3.5 x 15mm Xience KAVEH was placed more proximally. Finaly angiograms were performed. Pre intervention there was NEREYDA 3 flow and 60-70% stenosis however iFR abnormal and post intervention there was 0% stenosis and NEREYDA 3 flow with no dissection. The right radial sheath was removed and a TR band was placed with hemostasis achieved. The patient tolerated the procedure well. Patient was transported back to the post catheterization holding area in stable condition. Conscious Sedation: Patient was monitored under the direct supervision of vision of myself for conscious sedation using Versed and fentanyl for a total duration of 108 minutes HEMODYNAMICS: Aorta: 144/50 SELECTIVE CORONARY ARTERIOGRAPHY: LEFT MAIN: The left main is a large caliber, very short vessel which bifurcates into the LAD and circumflex. There is no significant stenosis. LEFT ANTERIOR DESCENDING CORONARY ARTERY: LAD is a large caliber vessel which wraps around to the apex. There is 40-50% proximal LAD stenosis and a more focal eccentric 60-70% stenosis. There is a mid LAD stent which is patent. There is distal edge 50-60% stenosis. Otherwise there are mild luminal irregularities. Diagonal 1 is small to moderate caliber with 90% stenosis. LEFT CIRCUMFLEX CORONARY ARTERY: Left circumflex is a large caliber vessel which has a mild luminal irregularities. The circumflex gives off a PDA and PLV branch and is the dominant vessel. RIGHT CORONARY ARTERY: The right coronary artery is a small caliber nondominant vessel without significant stenosis. FINAL IMPRESSION: 1. CAD as described above including proximal LAD 60-70% and mid LAD 50-60% stenosis. 2. iFR abnormal of LAD 3. S/p PCI proximal to mid LAD with overlapping 3.5 x 15mm Xience and 2.75 x 38mm Xience KAVEH, post dilated with a 3.5 NC balloon, balloon angioplasty diagonal 1 with a 2.25 x 12mm NC balloon PLAN: 1. Aggressive risk factor modification per most recent ACC/AHA guidelines. 2. Continue dual antiplatelets for 12 months with aspirin and Plavix.
[2022-12-01] MEDS: ATORVASTATIN 80 MG TAB PO SCH (20:28)
[2022-12-01] MEDS: DORZOLAMIDE HCL 2% DROPS 10 ML BTL RIGHT EYE SCH (20:30)
[2022-12-01] MEDS: ALPRAZolam 0.5 MG TAB PO PRN (20:32)
[2022-12-01] MEDS ORDERED: ACETAMINOPHEN TAB 325 MG TAB PO PRN (20:37)
[2022-12-01] MEDS ORDERED: METOPROLOL SUCCINATE (ER) 25 MG TAB.ER.24H PO SCH (21:00)
[2022-12-02] MEDS: LEVOTHYROXINE 50 MCG TAB PO SCH (06:10)
[2022-12-02 06:34] LABS: African American GFR (CKD) >90 (>60 ml/min/1.73 sqM); Anion Gap 9 mmol/L; Blood Urea Nitrogen 10 mg/dL (7-17); Calcium 8.4 mg/dL (8.4-10.2); Carbon Dioxide 18 mmol/L (22-30); Chloride 108 mmol/L (98-107); Glucose 95 mg/dL (74-99); Non-African American GFR(CKD) 85 (>60 ml/min/1.73 sqM); Sodium 135 mmol/L (137-145)
[2022-12-02 06:35] LABS: Potassium 4.7 mmol/L (3.5-5.1)
[2022-12-02] MEDS: CHOLECALCIFEROL 25 MCG (1000 IU) TABLET PO SCH (08:07)
[2022-12-02] MEDS: CLOPIDOGREL 75 MG TAB PO SCH (08:07)
[2022-12-02] MEDS: ASPIRIN 81 MG PO SCH (08:07)
[2022-12-02] MEDS: DORZOLAMIDE HCL 2% DROPS 10 ML BTL RIGHT EYE SCH ×2 (08:08→20:00)
[2022-12-02] MEDS: NITROGLYCERIN SL TABS 0.4 MG TAB SUBLINGUAL PRN ×4 (08:13→11:24)
[2022-12-02 08:20] LABS: Basophils % (A) 0 %; Eosinophils # (A) 0.1 k/uL (0-0.7); Eosinophils % (A) 1 %; HCT 42.4 % (34.0-46.0); HGB 13.2 gm/dL (11.4-16.0); Lymphocytes % (A) 13 %; MCH 29.9 pg (25.0-35.0); MCHC 31.3 g/dL (31.0-37.0); MCV 95.7 fL (80.0-100.0); Monocytes # (A) 0.6 k/uL (0-1.0); Monocytes % (A) 8 %; Neutrophils # (A) 5.5 k/uL (1.3-7.7); Neutrophils % (A) 76 %; Platelet Count 153 k/uL (150-450); RBC 4.43 m/uL (3.80-5.40); WBC 7.3 k/uL (3.8-10.6)
[2022-12-02] MEDS ORDERED: NON FORMULARY DRUG (Glucosam/Chon-Msm1/C/Mang/Bosw [Glucosamine-Chondroitin Tablet] 1 EACH PO SCH (09:00)
[2022-12-02] MEDS ORDERED: HEPARIN SODIUM 1,000 UN/ML (10ML VL) IV PRN (09:00)
[2022-12-02] MEDS ORDERED: HEPARIN SODIUM 1,000 UN/ML (10ML VL) IV ONE ×2 (09:00→13:45)
[2022-12-02] MEDS ORDERED: NON FORMULARY DRUG (Biotin [Biotin Disolve] 5,000 MCG Tab.Rapdis) PO SCH (09:00)
[2022-12-02] MEDS: HEPARIN SOD,PORK IN 0.45% NACL 25,000 UNIT in 0.45% NACL 1 250ML.BAG IV SCH (09:18)
[2022-12-02 09:52] LABS: Partial Thromboplastin Time 23.7 sec (22.0-30.0); Prothrombin Time 10.3 sec (9.0-12.0)
--- NOTE | 2022-12-02 10:04 | P.PN ---
Subjective Progress Note Date: 12/02/22 HPI: Patient is a pleasant 82-year-old female with significant past medical history of hyperthyroidism, former tobacco abuse, CAD status post PCI of LAD in September 2020 as well as restenosis, hyperlipidemia, and borderline hypertension who presented for outpatient heart catheterization. She had previously presented with unstable anginal type symptoms in the beginning of October 2022 that was mainly shortness of breath with minimal exertion that had been getting worse with chest tightness. Therefore, she underwent heart catheterization 11/10/2022 which revealed instent stenosis of 99% and therefore underwent balloon angioplasty of the mid LAD stent. She had been doing well initially afterwards, however, shortness of breath with exertion did return about the same as previous. She was therefore brought back 12/01/22 for heart catheterization to reassess stent. Heart catheterization revealed CAD including proximal LAD 6070% and mid LAD 5060% stenosis, iFR abnormal of LAD, status post PCI proximal to mid LAD with overlapping stent and balloon angioplasty diagonal 1. 12/02 Patient apparently reports having had chest pain since shortly after the cath and PCI yesterday, however not notified. She was given nitro x1 this morning and chest pain improved. She was started on a heparin drip. Stat troponin was checked this morning and was elevated at 15. EKG shows sinus rhythm with right bundle branch block. PHYSICAL EXAMINATION: Patient is resting in no acute distress. HEENT: Head is atraumatic, normocephalic. There is no jugular venous distention. No carotid bruit is heard. CHEST EXAMINATION: Lungs are clear to auscultation. No chest wall tenderness is noted on palpation or with deep breathing. HEART EXAMINATION: Heart regular rate and rhythm. S1, S2 heard. No murmurs, gallops or rub. ABDOMEN: Soft, nontender. Bowel sounds are heard. EXTREMITIES: 2+ peripheral pulses with no evidence of peripheral edema and no calf tenderness noted. Left radial wrist site with dressing intact, no hematoma, mild bruising, distal pulses present. NEUROLOGIC EXAMINATION: Patient is awake, alert and oriented x3. IMPRESSION AND PLAN: CAD status post PCI of LAD in September 2020, re-stenosis October 2022, s/p PCI of the LAD 12/01/22. Chest pain, concerning for unstable angina Hypertension Hyperlipidemia Dyspnea on exertion NSTEMI, periprocedural MS PLAN: Patient with new chest pain postprocedure and concern of stent thrombosis or possible thrombosis of diagonal branch. Nitroglycerin given this morning with relief of chest pain. Heparin drip was ordered. Stat troponin elevated at 15. Recommend giving 2 remaining doses of nitro. We'll take patient back to [facility] for heart catheterization to further evaluate for stent stenosis. Further recommendations postprocedure. I am dictating on behalf of Dr. Mickey Rodriguez's history/physical and assessment/plan. Objective - Vital Signs Vital signs: Vital Signs Temp 98.7 F 12/02/22 07:20 Pulse 69 12/02/22 07:20 Resp 16 12/02/22 07:20 BP 132/67 12/02/22 07:20 Pulse Ox 98 12/02/22 07:20 FiO2 Intake & Output 12/01/22 12/02/22 12/02/22 18:59 06:59 18:59 Intake Total 1100 118 Balance 1100 118 Weight 65.4 kg Intake: IV 1100 Oral 118 Other: # Voids 1 1 - Labs CBC & Chem 7: 12/02/22 06:01 12/02/22 06:01 Labs: Abnormal Lab Results - Last 24 Hours (Table) 12/01/22 12/01/22 12/02/22 Range/Units 10:00 10:00 06:01 MCHC 30.4 L (31.0-37.0) g/dL Sodium 136 L 135 L (137-145) mmol/L Chloride 108 H (98-107) mmol/L Carbon Dioxide 18 L (22-30) mmol/L Troponin I (0.000-0.034) ng/mL 12/02/22 Range/Units 08:38 MCHC (31.0-37.0) g/dL Sodium (137-145) mmol/L Chloride (98-107) mmol/L Carbon Dioxide (22-30) mmol/L Troponin I 15.400 H* (0.000-0.034) ng/mL
[2022-12-02 11:52] VITALS: BMI 27.2
[2022-12-02] MEDS ORDERED: fentaNYL (PF) 50 MCG/ML 2 ML AMP ONE (13:24)
[2022-12-02] MEDS ORDERED: fentaNYL (PF) 50 MCG/1 ML VIAL IVP ONE (13:27)
[2022-12-02] MEDS ORDERED: MIDAZOLAM 2 MG/2 ML VIAL IVP ONE (13:27)
[2022-12-02] MEDS: LIDOCAINE 1% INJ 10MG/ML (5 ML VIAL-PF) SQ ONE ×2 (13:27→13:38)
[2022-12-02] MEDS ORDERED: IV FLUID CONTINUATION 1,000 ML IV ONE (13:30)
[2022-12-02] MEDS ORDERED: VERAPAMIL SYRINGE (5 MG/10 ML) INTRAARTER ONE (13:43)
[2022-12-02] MEDS ORDERED: IOPAMIDOL-370 200ML BTL INJ ONE (14:04)
[2022-12-02] MEDS ORDERED: METOPROLOL SUCCINATE (ER) 25 MG TAB.ER.24H PO STA (14:46)
[2022-12-02] MEDS: ATORVASTATIN 80 MG TAB PO SCH (20:00)
--- NOTE | 2022-12-02 20:29 | P.CARDCATH ---
Description of Procedure: PROCEDURES PERFORMED: Left heart catheterization, left coronary angiography, left ventriculogram, IVUS of LAD INDICATION: NSTEMI HISTORY: This is a 82-year-old female with a past medical history significant for CAD and had balloon angioplasty 1 month ago of her mid LAD stent for instent stenosis and dyspnea had entirely improved for 1 week however over the last 2 weeks feels similar to before her interventions. She underwent repeat cath yesterday was iFR being abnormal of the proximal and mid portion of the stent and therefore underwent balloon angioplasty of the diagonal branch as well as stenting of the LAD. Patient developed post procedure chest pain and found to have NSTEMI and therefore repeat cath was advised. CONSENT:I have discussed the risks, benefits and alternative therapies for the above-mentioned procedure and for both sedation/analgesia as well as necessary blood product administration, if indicated, as they pertain to this patient. The patient has indicated understanding and acceptance of the risks and procedures discussed. PROCEDURE: After the risks, benefits and alternatives of the above mentioned procedure explained in detail with the patient, informed consent was obtained. Patient was taken to the catheterization lab and prepped and draped in usual fashion. 1% lidocaine was used to anesthetize the left radial artery. A 6- Lithuanian sheath was placed in the left radial artery using modified Seldinger technique. Left coronary angiography was performed with a 6-Lithuanian FL 3.5 guide catheter. The decision was made to perform IVUS of the LAD. Heparin was given for ACT > 250. IVUS showed excellent stent apposition, no dissection, no thrombus. The IVUS was removed. NSTEMI was felt possibly related to diagonal branch temporary occlusion or distal embolization however given patient already had instent stenosis once and increased risk of instent stenosis with any bifurcation kissi ng intervention, and patient chest pain free with patent diagonal branch, decision was made to treat medically. The left radial sheath was removed and a TR band was placed with hemostasis achieved. The patient tolerated the procedure well. Patient was transported back to the post catheterization holding area in stable condition. Conscious Sedation: Patient was monitored under the direct supervision of vision of myself for conscious sedation using Versed and fentanyl for a total duration of 38 minutes HEMODYNAMICS: Aorta: 128/60 SELECTIVE CORONARY ARTERIOGRAPHY: LEFT MAIN: The left main is a large caliber, very short vessel which bifurcates into the LAD and circumflex. There is no significant stenosis. LEFT ANTERIOR DESCENDING CORONARY ARTERY: LAD is a large caliber vessel which wraps around to the apex. There is patent proximal to mid LAD stent and otherwise there are mild luminal irregularities. Diagonal 1 is small to moderate caliber with 60-70% proximal stenosis. LEFT CIRCUMFLEX CORONARY ARTERY: Left circumflex is a large caliber vessel which has a mild luminal irregularities. The circumflex gives off a PDA and PLV branch and is the dominant vessel. RIGHT CORONARY ARTERY: The right coronary artery was not imaged however known to be small caliber nondominant vessel without significant stenosis. FINAL IMPRESSION: 1. CAD as described above including patent proximal to mid LAD stent with diagonal 1 proximal 60-70% stenosis. 2. IVUS normal of LAD 3. LV EF 55% with mid inferior mild hypokinesis 4. NSTEMI post procedure, felt possibly related to diagonal occlusion and recanncalization vs other PLAN: 1. Aggressive risk factor modification per most recent ACC/AHA guidelines. 2. Continue dual antiplatelets for 12 months with aspirin and Plavix. 3. NSTEMI felt possibly related to diagonal occlusion and recanalization. Given already had instent stenosis once, would attempt to avoid reintervention of bifurcation which would put increased risk of instent stenosis.
[2022-12-02] MEDS ORDERED: METOPROLOL SUCCINATE (ER) 50 MG TAB.ER.24H PO SCH (21:00)
[2022-12-03] MEDS ORDERED: MIDAZOLAM 2 MG/2 ML VIAL IVP ONE (04:48)
[2022-12-03] MEDS ORDERED: LIDOCAINE 1% INJ 10MG/ML (20 ML MDV) ONE (04:48)
[2022-12-03] MEDS ORDERED: LIDOCAINE 1% INJ 10MG/ML (30 ML VIAL-PF) SQ ONE (04:51)
[2022-12-03] MEDS ORDERED: SODIUM CHLORIDE 0.9% 500 ML 500 ML IV ONE (05:00)
--- NOTE | 2022-12-03 05:03 | P.PCN ---
Date of Procedure: 12/03/22 Operative Findings: PLACEMENT OF TRANSVENOUS TEMPORARY PACEMAKER Performing physician Rocky Polanco M.D. Procedure performed 1. Successful placement of transvenous temporary pacemaker from the right femoral vein 2. Ultrasound guided access of the right common femoral vein Indication The patient is an 82-year-old female patient with CAD and prior stenting of the LAD did have multiple episodes of sinus pauses with the longest about 8 seconds. These episodes happen during the night. She was receiving beta parvin and that was stopped. She was brought down to undergo transvenous temporary pacemaker. Approach Right common femoral vein Complications None Level of sedation Moderate with a sedation time of 8 minutes Procedure description After obtaining an informed consent the patient was brought to the cardiac laborer petroleum ref[facility]. The right common femoral vein was cannulated using micropuncture technique under ultrasound guidance, the micropuncture wire passed easily then I placed a 6-Iraqi sheath. Under fluoroscopy guidance the transvenous temporary pacemaker was balloon tip was advanced all the way to the RV apex. Subsequently the balloon was deflated. We override the heart rate to make sure that the pacemaker is functioning normally and subsequently we placed the pacemaker as a backup at 60 bpm. The procedure was completed was no complication Postprocedure management 1. ICU admission
[2022-12-03 05:23] LABS: Glucose,Whole Blood 116 mg/dL (70-110)
[2022-12-03] MEDS: LEVOTHYROXINE 50 MCG TAB PO SCH (06:00)
[2022-12-03 06:42] LABS: Basophils % (A) 0 %; Eosinophils # (A) 0.1 k/uL (0-0.7); Eosinophils % (A) 1 %; HCT 38.7 % (34.0-46.0); Lymphocytes # (A) 0.9 k/uL (1.0-4.8); Lymphocytes % (A) 12 %; MCH 29.5 pg (25.0-35.0); MCV 95.2 fL (80.0-100.0); Mean Platelet Volume 8.6; Monocytes # (A) 0.6 k/uL (0-1.0); Monocytes % (A) 7 %; Neutrophils % (A) 79 %; Platelet Count 216 k/uL (150-450); RBC 4.07 m/uL (3.80-5.40); RDW 13.8 % (11.5-15.5); WBC 7.6 k/uL (3.8-10.6)
[2022-12-03 07:14] LABS: INR 0.9 (<1.2); Prothrombin Time 9.8 sec (9.0-12.0)
--- NOTE | 2022-12-03 09:36 | P.PN ---
Subjective Progress Note Date: 12/03/22 The patient is an 82-year-old female who follows with Dr. Rodriguez. She is currently admitted after undergoing PCI of the LAD on December 01. She will return to the technical laboratory asst on December 02 after experiencing chest discomfort with elevated troponins. She was found to have patent proximal to mid LAD stent with 60-70% lesion in her first diagonal. Dr. Rodriguez felt and STEMI was possibly related to diagonal occlusion and recannulization. During her angiogram had bradycardia. Overnight TVP was placed for sinus pauses lasting 8 seconds. The patient was interviewed and examined resting comfortably in the ICU bed. She states she's not had any more chest discomfort that she described yesterday. No difficulty breathing and is tolerating lying flat in the ICU bed. No dizziness or lightheadedness. GENERAL: Well-appearing, well-nourished and in no acute distress. NECK: Supple without JVD or thyromegaly. LUNGS: Breath sounds clear to auscultation bilaterally. Respiration equal and unlabored. No wheezes, rales or rhonchi. HEART: Regular rate and rhythm without murmurs, rubs or gallops. S1 and S2 heard. EXTREMITIES: Normal range of motion, no edema. No clubbing or cyanosis. Peripheral pulses intact and strong. She is noted in right groin for TVP placement VITALS: Blood pressure 171/85, pulse 66, respiratory rate 23, SpO2 94% on room air TELEMETRY: Sinus rhythm with intermittent pacing. TVP rate set to 60 LABS: WBC 7.6, hemoglobin 12.0, hematocrit 30.7, platelet 216 IMPRESSION: Coronary artery disease with stenting of the proximal to mid LAD NSTEMI, periprocedural Sinus bradycardia with pauses, AV wendi blockers on hold Hypertension, uncontrolled PLAN: Start angiotensin receptor parvin Proceed with pacemaker implantation Continue to hold AV wendi blocking agents Further recommendations based upon clinical course I am dictating on behalf of Dr Gabriel Edmonds's history/physical and a ssessment/plan. Objective - Vital Signs Vital signs: Vital Signs Temp 98.5 F 12/03/22 02:36 Pulse 66 12/03/22 09:00 Resp 23 12/03/22 09:00 BP 171/85 12/03/22 09:00 Pulse Ox 94 L 12/03/22 09:00 FiO2 Intake & Output 12/02/22 12/03/22 12/03/22 18:59 06:59 18:59 Intake Total 961.164 50 40 Output Total 0 0 Balance 961.164 50 40 Weight 65.4 kg Intake: IV 100 50 40 0.9NS KVO 40 Intake, IV Titration 43.164 Amount Heparin Sod,Pork in 0.45% 43.164 NaCl 25,000 unit In 0.45 % NaCl 1 250ml.bag @ 12 UNITS/KG/HR 7.848 mls/hr IV .Q24H [facility] Rx#: [id number] Oral 818 Output: Urine 0 0 Other: # Voids 2 1 - Labs CBC & Chem 7: 12/03/22 06:04 12/02/22 06:01 Labs: Abnormal Lab Results - Last 24 Hours (Table) 12/02/22 12/02/22 12/02/22 Range/Units 08:38 14:50 14:52 Lymphocytes # (1.0-4.8) k/uL APTT 84.6 H (22.0-30.0) sec POC Glucose (mg/dL) (70-110) mg/dL Troponin I 15.400 H* 25.200 H* (0.000-0.034) ng/mL 12/03/22 12/03/22 Range/Units 05:21 06:04 Lymphocytes # 0.9 L (1.0-4.8) k/uL APTT (22.0-30.0) sec POC Glucose (mg/dL) 116 H (70-110) mg/dL Troponin I (0.000-0.034) ng/mL
[2022-12-03] MEDS: ASPIRIN 81 MG PO SCH (09:47)
[2022-12-03] MEDS: LOSARTAN 25 MG TAB PO SCH ×2 (09:48→20:27)
[2022-12-03] MEDS: CHOLECALCIFEROL 25 MCG (1000 IU) TABLET PO SCH (09:48)
[2022-12-03] MEDS: DORZOLAMIDE HCL 2% DROPS 10 ML BTL RIGHT EYE SCH ×2 (09:51→20:37)
[2022-12-03] MEDS: CLOPIDOGREL 75 MG TAB PO SCH (10:07)
[2022-12-03] MEDS: SODIUM CHLORIDE 0.9% 1,000 ML IV SCH ×2 (15:37)
[2022-12-03] MEDS: HEPARIN SOD,PORK IN 0.45% NACL 25,000 UNIT in 0.45% NACL 1 250ML.BAG IV SCH (15:38)
[2022-12-03] MEDS: ATORVASTATIN 80 MG TAB PO SCH (20:37)
[2022-12-03] MEDS: TIMOLOL 0.5% OPHTH DROPS 5 ML BTL BOTH EYES SCH (20:37)
[2022-12-04] MEDS: LEVOTHYROXINE 50 MCG TAB PO SCH (06:24)
[2022-12-04] MEDS ORDERED: CLINDAMYCIN 600 MG in SODIUM CHLORIDE 0.9% 250 ML IRRIGATION PRN (07:00)
[2022-12-04] MEDS ORDERED: CLINDAMYCIN 900 MG in DEXTROSE 5% IN WATER 50 ML IVPB PRN ×2 (07:00)
[2022-12-04] MEDS ORDERED: fentaNYL (PF) 50 MCG/ML 2 ML AMP ONE (09:07)
[2022-12-04] MEDS ORDERED: LIDOCAINE 1% INJ 10MG/ML (30 ML VIAL-PF) SQ ONE (09:14)
[2022-12-04] MEDS ORDERED: fentaNYL (PF) 50 MCG/ML 2 ML AMP IV ONE (09:17)
[2022-12-04] MEDS ORDERED: MIDAZOLAM 2 MG/2 ML VIAL IV ONE ×2 (09:17→09:23)
[2022-12-04] MEDS ORDERED: IV FLUID CONTINUATION 1,000 ML IV ONE (09:19)
[2022-12-04] MEDS ORDERED: SODIUM CHLORIDE 0.9% 1,000 ML IV ONE (10:00)
[2022-12-04] MEDS: CHOLECALCIFEROL 25 MCG (1000 IU) TABLET PO SCH (11:43)
[2022-12-04] MEDS: DORZOLAMIDE HCL 2% DROPS 10 ML BTL RIGHT EYE SCH ×2 (11:43→21:11)
[2022-12-04] MEDS: ASPIRIN 81 MG PO SCH (11:43)
[2022-12-04] MEDS: LOSARTAN 25 MG TAB PO SCH ×2 (11:43→21:11)
[2022-12-04] MEDS: CLOPIDOGREL 75 MG TAB PO SCH (11:43)
[2022-12-04] MEDS: HEPARIN SOD,PORK IN 0.45% NACL 25,000 UNIT in 0.45% NACL 1 250ML.BAG IV SCH (11:44)
[2022-12-04] MEDS: SODIUM CHLORIDE 0.9% 1,000 ML IV SCH ×2 (11:44)
[2022-12-04] MEDS: TIMOLOL 0.5% OPHTH DROPS 5 ML BTL BOTH EYES SCH ×2 (11:44→21:11)
--- NOTE | 2022-12-04 12:52 | P.PCN ---
Description of Procedure: CARDIOLOGY PROCEDURE NOTE Kitchen Chef: Dr. Mickey Rodriguez HPI: Patient is a pleasant 82-year-old female with history of CAD who presented for elective heart catheterization and underwent PCI of LAD. She additionally was found to have episodes of third-degree heart block and therefore permanent pacemaker was recommended. There is no reversible causes for her heart block. Procedure performed: Insertion dual chamber permanent pacemaker Site: Left subclavian Indications: Sick Sinus Syndrome Complications: None Blood Loss: Minimal Description of Procedure: After the risks, benefits, and alternatives of the above-mentioned procedure was explained in detail with the patient, informed consent was obtained. The patient was taken to the cardiac catheterization suite where the left subclavian area was sterily prepped and draped in the usual fashion. One percent lidocaine was used to anesthetize the left subclavian area. Twenty milliliters of Isoview 370 contrast was injected into the left antecubital vein to allow for direct visualization of the left subclavian vein under fluoroscopy. A 1.5 inch incision was made utilizing a #15 blade in the left subclavian site. Hemostasis was made complete. Electrocautery along with digital blunt dissection was utilized to dissect to the level of the pectoralis muscle fascia and create a pocket large enough to accommodate the generator. A thin walled micro puncuture needle was used to cannulate the left subclavian vein. A guide-wire was inserted through the needle into the vascular lumen under fluoroscopic guidance. The needle was removed. Another thin walled micr puncture needle was used to again cannulate the left subclavian vein. A guide-wire was inserted through the needle into the vascular lumen under fluoroscopic guidance. The needle was removed and both guide-wires were attached to the field. A venous sheath and dilator were advanced over the guidewire into the vascular lumen under fluoroscopic guidance. The dilator and guidewire were then removed. A right ventricular bipolar lead was inserted into the sheath and advanced under fluoroscopic guidance into the right ventricle under fluoroscopic guidance. Adequate sensing and pacing thresholds were achieved and the lead was screwed into place in the RV apex. The sheath was then torn away. The lead collar was advanced and anchored into place utilizing #0 silk suture. Next, another venous sheath and dilator were advanced under fluoroscopic guidance into the vascular lumen over the guidewire. After removal of the dilator and guidewire, a right atrial bipolar lead was inserted into this sheath and advanced under fluoroscopic guidance into the right atrium. The lead was positioned into the right atrial appendage. Adequate sensing and pacing thresholds were then achieved with patient being in Aflutter at the time and the lead was screwed into place. The sheath was then torn away. The lead collar was advanced and anchored into place utilizing #0 silk suture. The leads were then inserted into the appropriate position into the generator. They were then secured with the setscrew provided. The leads and generator were inserted into the pocket with the leads posterior. The subcutaneous tissue was approximated utilizing #2.0 and 3.0 vicryl in an interrupted stitch fashion. The dermal layer was approximated utilizing #4.0 vicryl. The area was cleansed with sterile saline and dried. A sterile 4x4 dressing was applied and the patient was transferred to the post catheterization holding area in stable and satisfactory condition. The patient tolerated the procedure well. Generator Data [employer]: [employer] Brand: [id number] [place] XT DR MRI Model #: W1DR01 Serial#: [id number] Right Atrial Bipolar Lead Data: Type: Active fixation lead [employer]: [employer] Model#: 5076-45 Serial Number: [id number] Right Ventricular Bipolar Lead Data: Type: Active fixation lead [employer]: [employer] Model #: 5076-52 Serial #: [id number] Stimulation Thresholds: Right atrial bipolar lead pacing and sensing thresholds Voltage: 2.0 Impedance: 532 ohms P-wave sensin.0 mV Right Ventricular bipolar lead pacing and sensing thresholds Pulse Width: 0.4ms Voltage: 0.5 volts Impedance: 1235 ohms R-wave sensin.5 mV Parameter Setting: Pacing mode is DDD Lower rate 60 bpm Upper rate 130 bpm Impressions: 1. Successful implantation of a dual chamber permanent pacemaker in the left pectoral site. Plan: 1. Routine post procedure care will be instituted as well as outpatient follow- up surveillance.
--- NOTE | 2022-12-04 14:21 | XR ---
EXAMINATION TYPE: XR chest 1V portable DATE OF EXAM: 12/04/2022 2:15 PM COMPARISON: Chest radiographs from 09/27/2020 TECHNIQUE: XR chest 1V portable Portable AP radiograph of the chest. CLINICAL INDICATION:Female, 82 years old with history of Lead placement check; FINDINGS: Lungs/Pleura: There is no evidence of pleural effusion, focal consolidation, or pneumothorax. Pulmonary vascularity: Unremarkable. Heart/mediastinum: Cardiomediastinal silhouette is prominent in size. Atherosclerotic calcifications are seen in the aorta. Two lead cardiac conduction device overlying the left hemithorax with lead ti ps projecting over the right ventricle and right atrium. Musculoskeletal: No acute osseous pathology. IMPRESSION: Interval placement of 2-lead left chest wall cardiac connection device with leads projecting over the right ventricle and right atrium.
[2022-12-04] MEDS ORDERED: CRESTOR 40 MG PO SCH ×2 (21:00)
[2022-12-04] MEDS ORDERED: DOCUSATE 100 MG CAP PO PRN (21:00)
[2022-12-04] MEDS: ATORVASTATIN 80 MG TAB PO SCH (21:09)
[2022-12-05] MEDS: LEVOTHYROXINE 50 MCG TAB PO SCH (06:09)
[2022-12-05] MEDS: hydrALAZINE HCL 20 MG/ML 1 ML VIAL IVP PRN ×2 (06:14→10:49)
[2022-12-05] MEDS: SODIUM CHLORIDE 0.9% 1,000 ML IV SCH ×2 (08:36→08:37)
[2022-12-05] MEDS: TIMOLOL 0.5% OPHTH DROPS 5 ML BTL BOTH EYES SCH ×2 (08:55→20:58)
[2022-12-05] MEDS: ASPIRIN 81 MG PO SCH (09:01)
[2022-12-05] MEDS: CHOLECALCIFEROL 25 MCG (1000 IU) TABLET PO SCH (09:01)
[2022-12-05] MEDS: CLOPIDOGREL 75 MG TAB PO SCH (09:02)
[2022-12-05] MEDS: LOSARTAN 25 MG TAB PO SCH (09:02)
[2022-12-05] MEDS: DORZOLAMIDE HCL 2% DROPS 10 ML BTL RIGHT EYE SCH ×2 (09:03→20:58)
[2022-12-05] MEDS ORDERED: LOSARTAN 25 MG TAB PO STA (11:48)
[2022-12-05] MEDS: LACTULOSE 20 GM/30 ML CUP PO PRN ×2 (13:00→17:08)
[2022-12-05] MEDS: ALPRAZolam 0.5 MG TAB PO PRN ×2 (13:33→20:59)
--- NOTE | 2022-12-05 14:04 | P.PN ---
Subjective Progress Note Date: 12/05/22 This is Juve Crane NP, I'm dictating on behalf of Dr. Edmonds's H&P and A&P. Patient was interviewed and examined. Patient is a pleasant 82-year-old female who initially presented to the hospital with atherosclerotic heart disease, and after a heart catheterization went into complete heart block, and is status post pacemaker placement. Patient reports that she is doing well. Patient's blood pressure was significantly high overnight, and the patient had medications adjusted. We started her on me toprolol to 25 mg at bedtime. Increased losartan to 50 mg twice a day. Today her blood pressure is significantly improved. Because of the significance of her issues, we will keep her in overnight to monitor her blood pressure. GENERAL: Well-appearing, well-nourished and in no acute distress. NECK: Supple without JVD or thyromegaly. LUNGS: Breath sounds clear to auscultation bilaterally. Respiration equal and unlabored. No wheezes, rales or rhonchi. HEART: Regular rate and rhythm without murmurs, rubs or gallops. S1 and S2 heard. EXTREMITIES: Normal range of motion, no edema. No clubbing or cyanosis. Peripheral pulses intact and strong. VITALS: Temp 97.9, pulse 80, respirations 12, blood pressure 136/62, O2 saturation 95% on room air TELEMETRY: Normal sinus rhythm LABS: No new laboratory results since 12/03/2022 IMPRESSION: 1. Coronary artery disease with stenting of the proximal to mid LAD 2. End STEMI, periprocedural 3. Complete heart block 4. Hypertension PLAN: Continue to hold AV wendi blocking agents Metoprolol 50 mg daily Increase losartan to 50 mg twice a day Continue telemetry monitoring Continue to monitor blood pressure Further recommendations based on patient's clinical course. Objective - Vital Signs Vital signs: Vital Signs Temp 97.9 F 12/05/22 08:00 Pulse 80 12/05/22 12:00 Resp 19 12/05/22 12:00 BP 136/62 12/05/22 12:00 Pulse Ox 95 12/05/22 12:00 FiO2 Intake & Output 12/04/22 12/05/22 12/05/22 18:59 06:59 18:59 Intake Total 1026 300 120 Output Total 550 100 Balance 476 200 120 Weight 64.7 kg Intake: IV 406 Intake, IV Titration 370 Amount Sodium Chloride 0.9% 1, 370 000 ml @ 50 mls/hr IV . Q20H [facility] Rx#:[id number] Oral 0 120 Tube Feeding 250 300 Output: Urine 550 100 Other: Voiding Method Toilet # Voids 1 - Labs CBC & Chem 7: 12/03/22 06:04 12/02/22 06:01
[2022-12-05] MEDS: METOPROLOL SUCCINATE (ER) 50 MG TAB.ER.24H PO SCH (15:50)
[2022-12-05] MEDS: ATORVASTATIN 80 MG TAB PO SCH (20:59)
[2022-12-05] MEDS: LOSARTAN 50 MG TAB PO SCH (20:59)
[2022-12-06] MEDS: LEVOTHYROXINE 50 MCG TAB PO SCH (06:40)
[2022-12-06] MEDS: HEPARIN SOD,PORK IN 0.45% NACL 25,000 UNIT in 0.45% NACL 1 250ML.BAG IV SCH (07:24)
[2022-12-06] MEDS: CHOLECALCIFEROL 25 MCG (1000 IU) TABLET PO SCH (09:00)
[2022-12-06] MEDS: CLOPIDOGREL 75 MG TAB PO SCH (09:00)
[2022-12-06] MEDS: ASPIRIN 81 MG PO SCH (09:00)
[2022-12-06] MEDS: LOSARTAN 50 MG TAB PO SCH (09:00)
[2022-12-06] MEDS: METOPROLOL SUCCINATE (ER) 50 MG TAB.ER.24H PO SCH (09:00)
[2022-12-06] MEDS: DORZOLAMIDE HCL 2% DROPS 10 ML BTL RIGHT EYE SCH (09:01)
[2022-12-06] MEDS: TIMOLOL 0.5% OPHTH DROPS 5 ML BTL BOTH EYES SCH (09:01)
[2022-12-06 11:39] VITALS: BP 171/79; PULSE 71; RESP 18; TEMP 98
--- NOTE | 2022-12-06 13:30 | P.DS ---
Providers Attending physician: Mickey Rodriguez DO Consults: 12/01/22 13:53 Consult Physician Routine Consulting Provider: [facility] Consult Reason/Comments: Post Interventional patient Do you want consulting provider notified?: Already Contacted Primary care physician: Raisa Ruvalcaba [facility] Hospital Course: The patient is an 82-year-old female who follows with Dr. Rodriguez. She is currently admitted after undergoing PCI of the LAD on December 01. 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 She was found to have patent proximal to mid LAD stent with 60-70% lesion in her first diagonal. Dr. Rodriguez felt and STEMI was possibly related to diagonal occlusion and recannulization. During her angiogram had bradycardia. Overnight TVP was placed for sinus pauses lasting 8 seconds. The patient underwent dual-chamber pacemaker placed by Dr. Rodriguez on December 04. The patient was interviewed and examined resting comfortably in bed. She denies any chest pain or chest pressure. She states overall she feels very well and better than when she arrived to the hospital. No difficulty breathing. No dizziness or lightheadedness. GENERAL: Well-appearing, well-nourished and in no acute distress. NECK: Supple without JVD or thyromegaly. LUNGS: Breath sounds clear to auscultation bilaterally. Respiration equal and unlabored. No wheezes, rales or rhonchi. HEART: Regular rate and rhythm without murmurs, rubs or gallops. S1 and S2 heard. Left anterior dressing clean, dry, and intact. No shadowing. EXTREMITIES: Normal range of motion, no edema. No clubbing or cyanosis. Peripheral pulses intact and strong. She is noted in right groin for TVP placement TELEMETRY: Sinus rhythm with intermittent pacing IMPRESSION: Coronary artery disease with stenting of the proximal to mid LAD NSTEMI, periprocedural Sinus bradycardia with pauses, AV wendi blockers on hold Hypertension, uncontrolled PLAN: Continue current medication regimen Patient may be discharged from the cardiac standpoint Patient to follow-up in office with primary video game script writer in 1 week I am dictating on behalf of Dr Gabriel Edmonds's history/physical and assessment/plan. Plan - Discharge Summary Discharge Rx Participant: No New Discharge Prescriptions: No Action Levothyroxine Sodium [Synthroid] 50 mcg PO DAILY Fexofenadine HCl [Anais Allergy] 180 mg PO HS Mometasone Furoate [Nasonex 50 mcg Nasal Ackerly] 1 spray EA NOSTRIL HS Vits A,C,E/Lutein/Minerals [Vision Formula with Lutein Tab] 1 tab PO DAILY Cholecalciferol [Vitamin D3 (25 Mcg = 1000 Iu)] 50 mcg PO DAILY Biotin [Biotin Disolve] 5,000 mcg PO DAILY Glucosam/Dm-Msm1/C/Tamir/Bosw [Glucosamine-Chondroitin Tablet] 1 tab PO DAILY Dorzolamide HCl/Pf [Dorzolamide 2% Eye Drop] 1 drop RIGHT EYE BID Alendronate Sodium [Fosamax] 70 mg PO MO Aspirin 81 mg PO DAILY #0 chew Metoprolol Succinate (ER) [Toprol XL] 25 mg PO HS Nf-Cbd Soft Gel 1 cap PO HS PRN PRN Reason: Anxiety Rosuvastatin Calcium 40 mg PO DAILY Clopidogrel [Plavix] 75 mg PO DAILY #90 tablet Turmeric Root Extract [Turmeric] 1,500 mg PO DAILY Timolol 0.5% Ophth Soln [Timoptic 0.5% Ophth Soln] 1 drop BOTH EYES BID Discharge Medication List Fexofenadine HCl [Anais Allergy] 180 mg PO HS 01/01/15 [History] Levothyroxine Sodium [Synthroid] 50 mcg PO DAILY 01/01/15 [History] Mometasone Furoate [Nasonex 50 mcg Nasal Ackerly] 1 spray EA NOSTRIL HS 01/01/15 [History] Alendronate Sodium [Fosamax] 70 mg PO MO 09/27/20 [History] Biotin [Biotin Disolve] 5,000 mcg PO DAILY 09/27/20 [History] Cholecalciferol [Vitamin D3 (25 Mcg = 1000 Iu)] 50 mcg PO DAILY 09/27/20 [History] Dorzolamide HCl/Pf [Dorzolamide 2% Eye Drop] 1 drop RIGHT EYE BID 09/27/20 [History] Glucosam/Dm-Msm1/C/Tamir/Bosw [Glucosamine-Chondroitin Tablet] 1 tab PO DAILY 09/27/20 [History] Vits A,C,E/Lutein/Minerals [Vision Formula with Lutein Tab] 1 tab PO DAILY 09/27/20 [History] Aspirin 81 mg PO DAILY #0 chew 09/30/20 [Rx] Metoprolol Succinate (ER) [Toprol XL] 25 mg PO HS 11/09/22 [History] Rosuvastatin Calcium 40 mg PO DAILY 11/09/22 [History] Clopidogrel [Plavix] 75 mg PO DAILY #90 tablet 11/10/22 [Rx] Nf-Cbd Soft Gel 1 cap PO HS PRN 11/26/22 [History] Turmeric Root Extract [Turmeric] 1,500 mg PO DAILY 11/26/22 [History] Timolol 0.5% Ophth Soln [Timoptic 0.5% Ophth Soln] 1 drop BOTH EYES BID 12/03/22 [History] Follow up Appointment(s)/Referral(s): Mickey Rodriguez DO [STAFF PHYSICIAN] - 1 Week (Keeping same appt that was already scheduled.) Patient Instructions/Handouts: After Radial Heart Catheterization (GEN), Pacemaker (DC), Sick Sinus Syndrome (DC) Activity/Diet/Wound Care/Special Instructions: PACEMAKER Keep dressing dry and intact for 5 days. You may cover the area with saran or cling wrap, prior to a shower. The dressing will be removed in the [facility] at [facility]. Absorbable sutures were used to close the wound. Avoid raising the left arm above the shoulder level. (4-week restriction). Avoid arm movements, like backscratching, rubbing your head, or pulling on a cord with your left arm. (4-week restriction). Gentle range of motion movements of the left shoulder should be performed to avoid a frozen shoulder. (Pendulum exercises). The opposite arm may be used freely. Avoid driving for 7 days. Avoid activities such as golfing, swimming, week whacking, lifting more than 10 pounds of weight, bowling, gymnastics and weight training/lifting. (6-week restriction). Activities such as chopping wood, pull-ups, power lifting, welding, and being around an induction cooktop will always be a problem and can interfere with your pacemaker. Your arm sling is only a reminder to not lift your arm above your head. You do not need to keep the arm completely immobilized. You are free to move your arm and use it for normal activities. In case of any problems, please call [facility] [place] @ [phone].
[2022-12-07] MEDS ORDERED: NON FORMULARY DRUG (Alendronate Sodium [Fosamax] 70 MG Tablet) PO SCH (13:52)
--- NOTE | 2022-12-14 13:16 | CDI ---
Documentation Clarification Form Date: 12/14/2022 From: Taty Hatfiedl Phone: [phone] Admit Date: 12/01/2022 1:37:00 PM Patient Name: Erica Zuniga Visit Number: [id number] Discharge Date: 12/06/2022 2:44:00 PM ATTENTION: The Clinical Documentation Specialists (CDI) and [facility] Coding Staff appreciate your assistance in clarifying documentation. Please respond to the clarification below the line at the bottom and electronically sign. The CDI & [facility] Coding staff will review the response and follow-up if needed. Please note: Queries are made part of the Legal Health Record. If you have any questions, please contact the author of this message via ITS. Dr. Mickey Rodriguez NSTEMI, periprocedural GA is documented and patient had a scheduled left heart cath which noted CAD in the prox to mid LAD and 60-70% prox diag stenosis. Pt underwent a PCI to the mid LAD. Additional clarification is requested regarding the relationship, if any, that exists between the diagnosis and the procedure. Patients Admitting Diagnosis: CAD, unstable angina Post-Operative Diagnosis: CAD Clinical Indicators: per cath report on 12/02, NSTEMI was felt possibly related to diagonal branch temporary occlusion or distal embolization however given patient already had instent stenosis once and increased risk of instent stenosis with any bifurcation kissing intervention, and patient chest pain free with patent diagonal branch, decision was made to treat medically. Treatment: medical therapy What relationship, if any, exists between the diagnosis of periprocedural GA and the procedure: [ X ] is a complication of surgical procedure [ ] is related to patients co-morbid condition(s) of CAD in the diagonal branch & not a complication of the procedure [ ] Other please specify ____ [ ] Unable to determine MTDD
== END 2022-12-06 14:44 | disposition home or self-care (01) | DRG 242 ==
LOC: CATHCVL 09:50 → 2SICU 13:37 → 6NMEDSUR 13:37 → CATHCVL 13:37 → 2SICU 12-03 → CATHCVL 12-03 → UNDOFXSDCSVC 12-03 05:39 → UNDOFXSDCACCOM 12-03 05:39 → 6NMEDSUR 12-03 05:39 → 2SICU 12-03 05:39 → 3SCARD 12-06 06:26 → 2SICU 12-06 06:26 → 3SCARD 12-06 14:44 → CATHCVL 12-06 14:44
PROVIDERS: ADMIT Internal Medicine; ATTEND Internal Medicine
PROC: B2111ZZ Fluoroscopy of Multiple Coronary Arteries using Low Osmolar Contrast (ICD-10-PCS; 2022-12-01 12:00)
PROC: 4A023N7 Measurement of Cardiac Sampling and Pressure, Left Heart, Percutaneous Approach (ICD-10-PCS; 2022-12-01 12:00)
PROC: 027035Z Dilation of Coronary Artery, One Artery with Two Drug-eluting Intraluminal Devices, Percutaneous Approach (ICD-10-PCS; 2022-12-01 12:00)
PROC: B240ZZ3 Ultrasonography of Single Coronary Artery, Intravascular (ICD-10-PCS; 2022-12-01 12:00)
PROC: 4A023N7 Measurement of Cardiac Sampling and Pressure, Left Heart, Percutaneous Approach (ICD-10-PCS; 2022-12-02)
PROC: B240ZZ3 Ultrasonography of Single Coronary Artery, Intravascular (ICD-10-PCS; 2022-12-02)
PROC: B2111ZZ Fluoroscopy of Multiple Coronary Arteries using Low Osmolar Contrast (ICD-10-PCS; 2022-12-02)
PROC: B2151ZZ Fluoroscopy of Left Heart using Low Osmolar Contrast (ICD-10-PCS; 2022-12-02)
PROC: 02HK3JZ Insertion of Pacemaker Lead into Right Ventricle, Percutaneous Approach (ICD-10-PCS; 2022-12-03)
PROC: 5A1223Z Performance of Cardiac Pacing, Continuous (ICD-10-PCS; 2022-12-03)
PROC: 0JH606Z Insertion of Pacemaker, Dual Chamber into Chest Subcutaneous Tissue and Fascia, Open Approach (ICD-10-PCS; principal; 2022-12-04 09:00)
PROC: 02H63JZ Insertion of Pacemaker Lead into Right Atrium, Percutaneous Approach (ICD-10-PCS; principal; 2022-12-04 09:00)
PROC: 02HK3JZ Insertion of Pacemaker Lead into Right Ventricle, Percutaneous Approach (ICD-10-PCS; principal; 2022-12-04 09:00)
DX: I25.110 Atherosclerotic heart disease of native coronary artery with unstable angina pectoris (principal); I21.4 Non-ST elevation (NSTEMI) myocardial infarction; I44.2 Atrioventricular block, complete; I97.790 Other intraoperative cardiac functional disturbances during cardiac surgery; I49.5 Sick sinus syndrome; E78.5 Hyperlipidemia, unspecified; E03.9 Hypothyroidism, unspecified; Y69 Unspecified misadventure during surgical and medical care; Z87.891 Personal history of nicotine dependence; Z88.0 Allergy status to penicillin; Z88.1 Allergy status to other antibiotic agents; Z88.2 Allergy status to sulfonamides; Z88.5 Allergy status to narcotic agent; Z88.8 Allergy status to other drugs, medicaments and biological substances; Z79.02 Long term (current) use of antithrombotics/antiplatelets; Z79.82 Long term (current) use of aspirin; Z79.899 Other long term (current) drug therapy; I10 Essential (primary) hypertension; Z95.5 Presence of coronary angioplasty implant and graft; Z71.3 Dietary counseling and surveillance; Z28.21 Immunization not carried out because of patient refusal
CPT/HCPCS: 33208; 80048; 84484; 85025; 85610; 85730; 92921; 92978; 93454; 93458; 93799